=== PATIENT | female | born 1965 | race Caucasian/White ===

== ENCOUNTER 2017-12-31 12:09 | Emergency (ER) | payer OTHER, SELFPAY ==
[2017-12-31] VITALS (7 sets, daily range): BP systolic 130–185; BP diastolic 84–103; PULSE 90–104; RESP 12–24; TEMP 36.3; O2SAT 95–100; BMI 30.9
--- NOTE | 2017-12-31 12:53 | ED.ABDPAIN ---
HPI - Abdominal Pain <RACHNA Paiz - Last Filed: 12/31/17 22:52> General Chief Complaint: Abdominal Pain Stated Complaint: VOMITING BILE,THROAT PAIN,DIZZY,WEAK Time Seen by Provider: 12/31/17 12:24 History of Present Illness HPI narrative: 52-year-old female with history of type 2 diabetes and sarcoidosis of the lung here for complaint of weakness over the past day to 2 days. She has had positive nausea. She states that she has not been able to ambulate for the past day without help from her caregiver which is new for her. She was recently admitted to [facility] for treatment of her sarcoidosis and recently released. She states that she does have some pain into her upper abdominal area and when she vomits pain radiates up into her chest area. She denies any fevers or chills. She denies any stressors or relievers of her discomfort. Last bowel movement was yesterday and was unremarkable. She denies any urinary symptoms. Decreased p.o. intake over the past day states her last p.o. intake was yesterday. Related Data Home Medications Medication Instructions Recorded Confirmed acetaminophen-codeine 0.5 tab PO Q12H PRN 12/31/17 12/31/17 amlodipine 5 mg PO DAILY 12/31/17 12/31/17 aspirin 81 mg PO DAILY 12/31/17 12/31/17 dextran 70-hypromellose 1 drp OPHTHALMIC (EYE) DIRECTED 12/31/17 12/31/17 [Artificial Tears (PF)] duloxetine 60 mg PO DAILY 12/31/17 12/31/17 hydroxyzine HCl 25 mg PO Q6H PRN 12/31/17 12/31/17 insulin lispro [Humalog KwikPen 1 dose SUB-Q DIRECTED 12/31/17 12/31/17 Insulin] omeprazole 40 mg PO DAILY 12/31/17 12/31/17 prednisone 1 dose PO DIRECTED 12/31/17 12/31/17 rosuvastatin 10 mg PO DAILY 12/31/17 12/31/17 sennosides [senna] 8.6 mg PO DIRECTED PRN 12/31/17 12/31/17 Allergies Allergy/AdvReac Type Severity Reaction Status Date / Time gabapentin Allergy Verified 12/31/17 12:18 hydrochlorothiazide Allergy Verified 12/31/17 12:18 Review of Systems <RACHNA Paiz - Last Filed: 12/31/17 22:52> Constitutional Reports weakness Eyes Denies change in vision, Denies eye discharge, Denies irritation and Denies loss of vision ENT Ears, Nose, Mouth, and Throat: Denies change in voice, Denies neck pain and Denies sore throat Cardiovascular Denies chest pain, Denies irregular heart rhythm, Denies lightheadedness, Denies palpitations, Denies dyspnea, Denies dyspnea on exertion and Denies orthopnea Respiratory Denies cough, Denies dyspnea, Denies dyspnea on exertion and Denies wheezing Gastrointestinal Gastrointestinal: Reports abdominal pain and Reports vomiting Genitourinary Denies hematuria, Denies flank pain, Denies urinary incontinence and Denies urinary urgency Musculoskeletal Denies neck pain Integumentary/Breasts Denies pruritus, Denies erythema, Denies rash and Denies wounds Neurologic Denies confusion, Denies loss of vision and Reports weakness Psychiatric Denies anxiety, Denies confusion, Denies depression, Denies homicidal ideation and Denies suicidal ideation Endocrine Denies palpitations Allergic/Immunologic Denies wheezing Exam <RACHNA Paiz - Last Filed: 12/31/17 22:52> Initial Vital Signs Initial Vital Signs: Vital Signs Temperature 97.4 F L 12/31/17 12:18 Pulse Rate 91 H 12/31/17 12:18 Respiratory Rate 18 12/31/17 12:18 Blood Pressure 130/90 H 12/31/17 12:18 Pulse Oximetry 95 12/31/17 12:18 Const General: cooperative and well developed Nutritional Appearance: well nourished Orientation: alert, awake, oriented x3 and not confused [facility] Mouth: oral mucosae normal, oropharynx normal and moist mucous membranes Eyes Conjunctivae: conjunctivae normal Sclera: sclerae normal Pupils: PERRL EOM: EOM intact bilaterally Resp Effort & Inspection: normal respiratory effort, able to speak in complete sentences, no respiratory distress and no use of accessory muscles Auscultation: clear to auscultation bilaterally, no rales, no rhonchi and no wheezes Cardio Rate: regular rate Rhythm: regular rhythm Heart Sounds: no click, no gallops, no murmurs and no rubs Pulses: normal peripheral pulses GI Inspection: non-distended Palpation: soft, no hepatosplenomegaly, No guarding, No pulsatile mass and tender (Tenderness to upper abdomen from epigastric to right upper quadrant on palpation) Auscultation: normal bowel sounds General: No CVA tenderness Skin General: no rashes or lesions noted, No jaundice and No petechiae Neuro Cognition: normal cognition Speech: speech normal Motor: muscle tone normal throughout <Escobar De Leon DO - Last Filed: 01/01/18 07:03> Initial Vital Signs Initial Vital Signs: Vital Signs Temperature 97.4 F L 12/31/17 12:18 Pulse Rate 91 H 12/31/17 12:18 Respiratory Rate 18 12/31/17 12:18 Blood Pressure 130/90 H 12/31/17 12:18 Pulse Oximetry 95 12/31/17 12:18 Course <RACHNA Paiz - Last Filed: 12/31/17 22:52> Orders Ordered: Discontinued Medications Diphenhydramine HCl (Benadryl) 25 mg IV NOW ONE Stop: 12/31/17 12:54 Last Admin: 12/31/17 13:12 Dose: 25 mg Hydromorphone HCl (Dilaudid) 0.5 mg IV NOW ONE Stop: 12/31/17 12:54 Last Admin: 12/31/17 13:12 Dose: 0.5 mg Sodium Chloride (Normal Saline 0.9%) 1,000 mls @ 1,000 mls/hr IV BOLUS ONE Stop: 12/31/17 13:52 Last Infusion: 12/31/17 14:30 Dose: 0 mls/hr Admin: 12/31/17 13:12 Dose: 1,000 mls/hr Sodium Chloride (Normal Saline 0.9%) 1,000 mls @ 1,000 mls/hr IV BOLUS ONE Stop: 12/31/17 15:33 Last Infusion: 12/31/17 16:39 Dose: 0 mls/hr Admin: 12/31/17 14:38 Dose: 1,000 mls/hr Sodium Chloride (Normal Saline 0.9%) 1,000 mls @ 150 mls/hr IV CONT ROX Last Infusion: 12/31/17 17:36 Dose: 150 mls/hr Admin: 12/31/17 16:41 Dose: 150 mls/hr Metoclopramide HCl (Reglan) 10 mg IV NOW ONE Stop: 12/31/17 12:54 Last Admin: 12/31/17 13:12 Dose: 10 mg Prednisone (Deltasone) 40 mg PO NOW ONE Stop: 12/31/17 14:14 Last Admin: 12/31/17 14:23 Dose: 40 mg Vital Signs - 8 hr 12/31/17 15:41 12/31/17 16:27 12/31/17 16:50 Pulse Rate 92 H 94 H 93 H Respiratory Rate 12 16 13 Blood Pressure [Left Arm] 148/84 H 161/91 H 177/94 H Pulse Oximetry 100 96 97 <Escobar De Leon DO - Last Filed: 01/01/18 07:03> Orders Ordered: Discontinued Medications Diphenhydramine HCl (Benadryl) 25 mg IV NOW ONE Stop: 12/31/17 12:54 Last Admin: 12/31/17 13:12 Dose: 25 mg Hydromorphone HCl (Dilaudid) 0.5 mg IV NOW ONE Stop: 12/31/17 12:54 Last Admin: 12/31/17 13:12 Dose: 0.5 mg Sodium Chloride (Normal Saline 0.9%) 1,000 mls @ 1,000 mls/hr IV BOLUS ONE Stop: 12/31/17 13:52 Last Infusion: 12/31/17 14:30 Dose: 0 mls/hr Admin: 12/31/17 13:12 Dose: 1,000 mls/hr Sodium Chloride (Normal Saline 0.9%) 1,000 mls @ 1,000 mls/hr IV BOLUS ONE Stop: 12/31/17 15:33 Last Infusion: 12/31/17 16:39 Dose: 0 mls/hr Admin: 12/31/17 14:38 Dose: 1,000 mls/hr Sodium Chloride (Normal Saline 0.9%) 1,000 mls @ 150 mls/hr IV CONT ROX Last Infusion: 12/31/17 17:36 Dose: 150 mls/hr Admin: 12/31/17 16:41 Dose: 150 mls/hr Metoclopramide HCl (Reglan) 10 mg IV NOW ONE Stop: 12/31/17 12:54 Last Admin: 12/31/17 13:12 Dose: 10 mg Prednisone (Deltasone) 40 mg PO NOW ONE Stop: 12/31/17 14:14 Last Admin: 12/31/17 14:23 Dose: 40 mg Vital Signs - 8 hr 12/31/17 15:41 12/31/17 16:27 12/31/17 16:50 Pulse Rate 92 H 94 H 93 H Respiratory Rate 12 16 13 Blood Pressure [Left Arm] 148/84 H 161/91 H 177/94 H Pulse Oximetry 100 96 97 MDM - Abdominal Pain <RACHNA Paiz - Last Filed: 12/31/17 22:52> Lab Data Result diagrams: 12/31/17 12:35 12/31/17 12:35 Lab Results 12/31/17 12/31/17 Range/Units 12:35 12:35 WBC 9.1 (4.5-11.0) X10^3/uL RBC 4.63 (4.0-5.2) X10^6/uL Hgb 12.4 (12.0-16.0) g/dL Hct 36.7 (36-46) % MCV 79.4 L (80-100) fL MCH 26.8 (26-34) PG MCHC 33.8 (30-36) % RDW 14.2 (11.6-14.8) % Plt Count 306 (150-400) X10^3/uL Neut % (Auto) 69.8 (50-75) % Lymph % (Auto) 15.1 L (25-40) % [place] % (Auto) 9.4 (3-14) % Eos % (Auto) 5.2 H (2-4) % Baso % (Auto) 0.5 (0-2) % Neut # (Auto) 6300 H (5117-4005) /uL Sodium 140 (137-145) mmol/L Potassium 4.3 (3.4-5.1) mmol/L Chloride 90 L (98-107) mmol/L Carbon Dioxide 40 H* (22-32) mmol/L BUN 30 H (7-17) mg/dL Creatinine 2.00 H (0.52-1.04) mg/dL Estimated GFR 26.2 L (>60) mL/min BUN/Creatinine Ratio 15.0 (6-22) Glucose 220 H (70-100) mg/dL Calcium 17.4 H* (8.4-10.2) mg/dL Total Bilirubin 0.7 (0.2-1.3) mg/dL AST 48 H (14-36) IU/L ALT 35 (9-52) IU/L Alkaline Phosphatase 164 H (38-126) U/L Total Creatine Kinase 25 L (30-135) U/L Troponin I < 0.012 (0.01-0.034) ng/mL Total Protein 9.0 H (6.3-8.2) g/dL Albumin 4.2 (3.5-5.0) g/dL Globulin 4.8 H (1.7-4.1) g/dL Albumin/Globulin Ratio 0.9 L (1.0-2.8) Lipase 25 (23-300) U/L Imaging Data CT scan - abdomen: Radiologist's impression: Patient: Sumaya Ram MR#: [id number] : 1965 Acct:[id number] Age/Sex: 52 / F Date of Service: 12/31/17 Loc: ED Accession Number: [id number] Procedure: CT kidney ureter bladder (KUB) Ordering Provider: Luís Romero PROCEDURE: CT KIDNEY URETER BLADDER (KUB) INDICATIONS: Nausea vomiting abdominal pain TECHNIQUE: Noncontrast 5 mm thick sections acquired from the diaphragms to the symphysis. 5 mm thick coronal and sagittal reformats were then performed. For radiation dose reduction, the following was used: automated exposure control, adjustment of mA and/or kV according to patient size. COMPARISON: [facility], , ABDOMEN COMPLETE, 09/24/2007, 9:21. FINDINGS: Image quality: Excellent. Lung bases: Lung bases are clear. Heart size is normal. Urinary system: Both kidneys are normal in size. No kidney stones. No hydronephrosis or perinephric fat stranding. Both ureters appear non-dilated throughout their expected courses. Bladder wall thickness is normal; no calcified bladder stones. Other solid organs: Liver is enlarged with steatosis. Gallbladder demonstrates layering hyperdensity. No wall thickening. Pancreas is normal in contours. Spleen is normal in size. No adrenal nodules. Peritoneum and bowel: Unenhanced bowel loops demonstrate normal wall thickness and caliber. No free fluid or air. Colonic diveritcula are present without inflammatory change. Nodes and vessels: No retroperitoneal or mesenteric adenopathy by size criteria. Aorta and inferior vena cava are normal in caliber. Abdominal wall: No ventral hernias. Pelvis: No free pelvic fluid. Fat containing bilateral inguinal hernias. No adenopathy. Bones: No suspicious bony lesions. No vertebral body compression fractures. IMPRESSION: 1. No acute intra-abdominal or pelvic process. 2. Layering appearance of faint hyperdensity in the gallbladder without wall thickening. This could represent sludge. Ultrasound may be obtained if clinically indicated. Dictated by: Susie Ospina M.D. on 12/31/2017 at 14:29 Approved by: Susie Ospina M.D. on 12/31/2017 at 14:49 ECG Data Interpretation: EKG shows normal sinus rhythm with no ST elevation or depression. No ectopy. Ventricular rate of 97. W[place] interval of 165. QRS duration of 89. QT of 327. MDM Narrative Medical decision making narrative: CBC was obtained was unremarkable. Chem panel shows elevated calcium of 17, elevated CO2 of 40, creatinine of 2 and GFR of 26. Chest x-ray was obtained and was unremarkable. Discussed case with [facility] hospitalist Dr. Walter and also nephrology Dr. Morgan who has good knowledge in history of patient. Who recommend transferring patient down to [facility] for admission and further care and treatment down there. She has a history of having hypercalcemia secondary to the sarcoidosis and subsequent renal insufficiency. They recommended I give patient 40 mg of prednisone. Patient is supposed to be taking methotrexate and also prednisone taper does however patient states she has not started taking this as of yet. She is given 40 mg of prednisone in the emergency room. 2 L of normal saline was ordered and then placed on 150 mL of normal saline per hour. Patient was given Reglan and Benadryl for nausea which has helped her symptoms and a small dose of Dilaudid which also helped her discomfort. CT of abdomen was obtained and was negative for any acute findings. Patient is transported via ALS to [facility] <Escobar De Leon, - Last Filed: 01/01/18 07:03> Lab Data Lab Results 12/31/17 12/31/17 Range/Units 12:35 12:35 WBC 9.1 (4.5-11.0) X10^3/uL RBC 4.63 (4.0-5.2) X10^6/uL Hgb 12.4 (12.0-16.0) g/dL Hct 36.7 (36-46) % MCV 79.4 L (80-100) fL MCH 26.8 (26-34) PG MCHC 33.8 (30-36) % RDW 14.2 (11.6-14.8) % Plt Count 306 (150-400) X10^3/uL Neut % (Auto) 69.8 (50-75) % Lymph % (Auto) 15.1 L (25-40) % [place] % (Auto) 9.4 (3-14) % Eos % (Auto) 5.2 H (2-4) % Baso % (Auto) 0.5 (0-2) % Neut # (Auto) 6300 H (8595-5930) /uL Sodium 140 (137-145) mmol/L Potassium 4.3 (3.4-5.1) mmol/L Chloride 90 L (98-107) mmol/L Carbon Dioxide 40 H* (22-32) mmol/L BUN 30 H (7-17) mg/dL Creatinine 2.00 H (0.52-1.04) mg/dL Estimated GFR 26.2 L (>60) mL/min BUN/Creatinine Ratio 15.0 (6-22) Glucose 220 H (70-100) mg/dL Calcium 17.4 H* (8.4-10.2) mg/dL Total Bilirubin 0.7 (0.2-1.3) mg/dL AST 48 H (14-36) IU/L ALT 35 (9-52) IU/L Alkaline Phosphatase 164 H (38-126) U/L Total Creatine Kinase 25 L (30-135) U/L Troponin I < 0.012 (0.01-0.034) ng/mL Total Protein 9.0 H (6.3-8.2) g/dL Albumin 4.2 (3.5-5.0) g/dL Globulin 4.8 H (1.7-4.1) g/dL Albumin/Globulin Ratio 0.9 L (1.0-2.8) Lipase 25 (23-300) U/L Discharge Plan Departure Patient Disposition: [facility] Clinical Impression: Hypercalcemia due to sarcoidosis, Acute renal insufficiency, Weakness Discharge Date/Time: 12/31/17 17:15 Interventions: ED Discharge Assessment Last Done: 12/31/17 17:49 Prescriptions: No Action sennosides [senna] 8.6 mg Tablet 8.6 mg PO DIRECTED PRN (Reason: Constipation) RF: 0 prednisone 20 mg Tablet 1 dose PO DIRECTED RF: 0 acetaminophen-codeine 300-30 mg Tablet 0.5 tab PO Q12H PRN (Reason: Pain, Moderate) RF: 0 amlodipine 5 mg Tablet 5 mg PO DAILY RF: 0 omeprazole 40 mg Capsule,Delayed Release(Dr/Ec) 40 mg PO DAILY RF: 0 aspirin 81 mg Tablet,Chewable 81 mg PO DAILY RF: 0 hydroxyzine HCl 25 mg Tablet 25 mg PO Q6H PRN (Reason: Itching) RF: 0 insulin lispro [Humalog KwikPen Insulin] 100 unit/mL Insulin Pen 1 dose Sub-Q DIRECTED RF: 0 dextran 70-hypromellose [Artificial Tears (PF)] Dropperette 1 drp ophthalmic (eye) DIRECTED RF: 0 rosuvastatin 10 mg Tablet 10 mg PO DAILY RF: 0 duloxetine 60 mg Capsule,Delayed Release(Dr/Ec) 60 mg PO DAILY RF: 0 <Escobar De Leon DO - Last Filed: 01/01/18 07:03> Cosign ED Attending Maddyature Attestation: I was available for consultation during this patient's emergency department encounter
--- NOTE | 2017-12-31 12:55 | DI.RAD.S_ITS ---
PROCEDURE: XR CHEST 1V INDICATIONS: Weakness TECHNIQUE: One view of the chest was acquired. COMPARISON: [facility], , CHEST 1VW (PORTABLE), 10/12/2007, 1:19. FINDINGS: Surgical changes and devices: None. Lungs and pleura: No pleural effusions or pneumothorax. Lungs are clear. Mediastinum: Mediastinal contours appear normal. Heart size is normal. Bones and chest wall: No suspicious bony lesions. Overlying soft tissues appear unremarkable. IMPRESSION: Negative chest. No acute cardiopulmonary process is evident. Dictated by: Trell Del Castillo M.D. on 12/31/2017 at 12:34 Approved by: Trell Del Castillo M.D. on 12/31/2017 at 12:34
[2017-12-31 13:02] LABS: Add Manual Diff / Slide Review NO; Basophils Percent Auto 0.5 % (0-2); Eosinophils Percent Auto 5.2 % (2-4); Hematocrit 36.7 % (36-46); Hemoglobin 12.4 g/dL (12.0-16.0); Lymphocytes Percent Auto 15.1 % (25-40); Mean Corpuscular HGB Conc 33.8 % (30-36); Mean Corpuscular Hemoglobin 26.8 PG (26-34); Mean Corpuscular Volume 79.4 fL (80-100); Monocytes Percent Auto 9.4 % (3-14); Neutrophils Absolute Auto 6300 /uL (3000-5900); Neutrophils Percent Auto 69.8 % (50-75); Platelet Count 306 X10^3/uL (150-400); Red Blood Cell Count 4.63 X10^6/uL (4.0-5.2); Red Cell Distribution Width 14.2 % (11.6-14.8); White Blood Cell Count 9.1 X10^3/uL (4.5-11.0)
[2017-12-31 13:09] LABS: Alanine Aminotransferase 35 IU/L (9-52); Albumin 4.2 g/dL (3.5-5.0); Albumin Globulin Ratio 0.9 (1.0-2.8); Alkaline Phosphatase 164 U/L (38-126); Aspartate Aminotransferase 48 IU/L (14-36); Bilirubin Total 0.7 mg/dL (0.2-1.3); Blood Urea Nitrogen 30 mg/dL (7-17); Chloride 90 mmol/L (98-107); Creatine Kinase 25 U/L (30-135); Estimated Glomerular Filt Rate 26.2 mL/min (>60); Globulin 4.8 g/dL (1.7-4.1); Glucose 220 mg/dL (70-100); HEMOLYSIS < 15 (0-50); Lipase 25 U/L (23-300); Potassium 4.3 mmol/L (3.4-5.1); Sodium 140 mmol/L (137-145)
[2017-12-31] MEDS: METOCLOPRAMIDE 10 MG/2 ML INJ IV (13:12)
[2017-12-31] MEDS: HYDROMORPHONE 1 MG INJ 0.5 MG IV (13:12)
[2017-12-31] MEDS: SODIUM CHLORIDE 0.9% 1,000 ML 1000 ML IV ×2 (13:12→14:38)
[2017-12-31] MEDS: diphenhydrAMINE 50 MG/ML VIAL 25 MG IV (13:12)
[2017-12-31 13:24] LABS: Troponin I < 0.012 ng/mL (0.01-0.034)
[2017-12-31 13:25] LABS: Calcium 17.4 mg/dL (8.4-10.2); Carbon Dioxide 40 mmol/L (22-32)
--- NOTE | 2017-12-31 14:09 | DI.CT.S_ITS ---
PROCEDURE: CT KIDNEY URETER BLADDER (KUB) INDICATIONS: Nausea vomiting abdominal pain TECHNIQUE: Noncontrast 5 mm thick sections acquired from the diaphragms to the symphysis. 5 mm thick coronal and sagittal reformats were then performed. For radiation dose reduction, the following was used: automated exposure control, adjustment of mA and/or kV according to patient size. COMPARISON: [facility], [place], ABDOMEN COMPLETE, 09/24/2007, 9:21. FINDINGS: Image quality: Excellent. Lung bases: Lung bases are clear. Heart size is normal. Urinary system: Both kidneys are normal in size. No kidney stones. No hydronephrosis or perinephric fat stranding. Both ureters appear non-dilated throughout their expected courses. Bladder wall thickness is normal; no calcified bladder stones. Other solid organs: Liver is enlarged with steatosis. Gallbladder demonstrates layering hyperdensity. No wall thickening. Pancreas is normal in contours. Spleen is normal in size. No adrenal nodules. Peritoneum and bowel: Unenhanced bowel loops demonstrate normal wall thickness and caliber. No free fluid or air. Colonic diveritcula are present without inflammatory change. Nodes and vessels: No retroperitoneal or mesenteric adenopathy by size criteria. Aorta and inferior vena cava are normal in caliber. Abdominal wall: No ventral hernias. Pelvis: No free pelvic fluid. Fat containing bilateral inguinal hernias. No adenopathy. Bones: No suspicious bony lesions. No vertebral body compression fractures. IMPRESSION: 1. No acute intra-abdominal or pelvic process. 2. Layering appearance of faint hyperdensity in the gallbladder without wall thickening. This could represent sludge. Ultrasound may be obtained if clinically indicated. Dictated by: Susie Ospina M.D. on 12/31/2017 at 14:29 Approved by: Susie Ospina M.D. on 12/31/2017 at 14:49
[2017-12-31] MEDS: predniSONE 20 MG TABLET 40 MG PO (14:23)
--- NOTE | 2017-12-31 16:38 | PC.NURSE ---
Gave report to GAEL Jacobsen from [facility].
[2017-12-31] MEDS: SODIUM CHLORIDE 0.9% 1,000 ML 150 ML IV (16:41)
== END 2017-12-31 17:15 | disposition short-term general hospital (02) ==
PROVIDERS: Emergency Provider Nurse Practitioner Family
DX: E83.52 Hypercalcemia (principal); N18.9 Chronic kidney disease, unspecified; R53.81 Other malaise
CPT/HCPCS: 36591; 71045; 74176; 80053; 82550; 82553; 83690; 84484; 85025; 93005; 96361; 96374; 96375; 99284; 99285; J1170; J1200; J2765

== ENCOUNTER 2018-03-02 17:16 | Emergency (ER) | payer OTHER, SELFPAY ==
[2018-03-02 17:23] VITALS: BP 162/88; PULSE 102; RESP 22; O2SAT 97
--- NOTE | 2018-03-02 17:23 | DI.RAD.S_ITS ---
PROCEDURE: XR CHEST 1V INDICATIONS: dyspnea TECHNIQUE: One view of the chest was acquired. COMPARISON: None. FINDINGS: Surgical changes and devices: None. Lungs and pleura: No pleural effusions or pneumothorax. Lungs are clear. Mediastinum: Mediastinal contours appear normal. Heart size is normal. Bones and chest wall: No suspicious bony lesions. Overlying soft tissues appear unremarkable. IMPRESSION: No acute cardiopulmonary pathology. Dictated by: Truong Napoles M.D. on 03/02/2018 at 18:04 Approved by: Truong Napoles M.D. on 03/02/2018 at 18:04
[2018-03-02 17:41] VITALS: TEMP 36.8
--- NOTE | 2018-03-02 18:29 | PC.NURSE ---
pt denies any pain at this time. all of my symptoms besides my feet swelling have went away.
[2018-03-02] MEDS: SODIUM CHLORIDE 0.9% 1,000 ML 1000 ML IV (18:31)
--- NOTE | 2018-03-02 18:32 | PC.NURSE ---
NS RUNNING AT 150ML/HR.
[2018-03-02 18:38] VITALS: BP 154/82; PULSE 92; RESP 18; O2SAT 99
--- NOTE | 2018-03-02 18:41 | ED.GENADULT ---
HPI - General Adult General Chief complaint: Diabetic Problem Stated complaint: SWELLING ALL OVER,SOB Time Seen by Provider: 03/02/18 17:27 Source: patient and family Mode of arrival: ambulatory Limitations: no limitations History of Present Illness HPI narrative: 52-year-old female with history of complex type 2 diabetes and sarcoidosis with pulmonary and renal involvement presents to the emergency department with a chief complaint of a few days of increasing fatigue and malaise along with slowly elevating blood sugars and widespread swelling. The patient denies any chest pain or shortness of breath and has had no recent illness with fever, chills, chest pain or abdominal pain. Patient has a complex medical history and was diagnosed with sarcoidosis in August and has had frequent hospitalizations and difficult to manage symptoms ever since. She was most recently seen here about a month ago and transferred to [facility] for acute renal failure and hypercalcemia. She denies noncompliance with her insulin 9 and states that she has had some recent medication changes including the addition of Remicade, the reduction of her daily prednisone from 40-30 mg and an increase in her nightly Lantus to 50 units Onset (ago): day(s) Relieving factors: none Exacerbating factors: none Related Data Home Medications Medication Instructions Recorded Confirmed acetaminophen-codeine 0.5 tab PO Q12H PRN 12/31/17 12/31/17 amlodipine 5 mg PO DAILY 12/31/17 12/31/17 aspirin 81 mg PO DAILY 12/31/17 12/31/17 dextran 70-hypromellose 1 drp OPHTHALMIC (EYE) DIRECTED 12/31/17 12/31/17 [Artificial Tears (PF)] duloxetine 20 mg PO DAILY 12/31/17 12/31/17 hydroxyzine HCl 25 mg PO Q6H PRN 12/31/17 12/31/17 insulin lispro [Humalog KwikPen 1 dose SUB-Q DIRECTED 12/31/17 12/31/17 Insulin] omeprazole 40 mg PO DAILY 12/31/17 12/31/17 prednisone 30 mg PO DAILY 12/31/17 12/31/17 rosuvastatin 10 mg PO DAILY 12/31/17 12/31/17 sennosides [senna] 8.6 mg PO DIRECTED PRN 12/31/17 12/31/17 carvedilol 6.25 mg PO BID 03/02/18 03/02/18 furosemide 20 mg PO BID 03/02/18 03/02/18 infliximab [Remicade] 1 dose IV Q8W 03/02/18 03/02/18 insulin glargine [Lantus Solostar 50 unit SUB-Q DAILY 03/02/18 03/02/18 U-100 Insulin] triamterene [Dyrenium] 100 mg PO DAILY 03/02/18 03/02/18 Allergies Allergy/AdvReac Type Severity Reaction Status Date / Time gabapentin Allergy Verified 12/31/17 12:18 hydrochlorothiazide Allergy Verified 12/31/17 12:18 Review of Systems Review of Systems All systems reviewed & are unremarkable except as noted in HPI and below Constitutional Denies chills, Reports fatigue, Denies fever(s), Reports lethargy and Reports weakness Eyes Denies change in vision, Denies eye discharge, Denies irritation and Denies loss of vision ENT Ears, Nose, Mouth, and Throat: Denies change in voice, Denies neck pain and Denies sore throat Cardiovascular Denies chest pain, Denies irregular heart rhythm, Denies lightheadedness, Denies palpitations, Denies dyspnea, Denies dyspnea on exertion and Denies orthopnea Respiratory Denies cough, Denies dyspnea, Denies dyspnea on exertion and Denies wheezing Gastrointestinal Gastrointestinal: Denies abdominal pain, Denies change in bowel habits, Denies diarrhea, Denies nausea and Denies vomiting Genitourinary Denies hematuria, Denies flank pain, Denies urinary incontinence and Denies urinary urgency Musculoskeletal Denies neck pain Comments: Patient admits to widespread swelling which is most notable in her feet and ankles Integumentary/Breasts Denies pruritus, Denies erythema, Denies rash and Denies wounds Neurologic Denies confusion, Denies loss of vision and Reports weakness Psychiatric Denies anxiety, Denies confusion, Denies depression, Denies homicidal ideation and Denies suicidal ideation Endocrine Reports fatigue and Denies palpitations Hematologic/Lymphatic Denies easy bruising Allergic/Immunologic Denies wheezing PFSH Medical History GERD (gastroesophageal reflux disease) (Chronic) HTN (hypertension) (Chronic) Hyperlipidemia (Chronic) Sarcoidosis (Chronic) Type 2 diabetes mellitus (Chronic) Exam Initial Vital Signs Initial Vital Signs: Vital Signs Pulse Rate 102 H 03/02/18 17:23 Respiratory Rate 22 03/02/18 17:23 Blood Pressure 162/88 H 03/02/18 17:23 Pulse Oximetry 97 03/02/18 17:23 Const General: cooperative and well developed Nutritional Appearance: obese Orientation: alert, awake, oriented x3 and not confused [facility] Head: normocephalic and atraumatic Ears: external ears normal and TM's normal bilaterally Nose: external nose normal and No nasal discharge Face and sinus: sinuses nontender, face symmetric, no sinus tenderness and No dry mucous membranes Mouth: oral mucosae normal and moist mucous membranes Teeth and gingiva: dentition normal Throat: tonsils normal and uvula midline Eyes General: appearance normal, both eyes and all related structures Eyelids: eyelids normal Conjunctivae: conjunctivae normal Sclera: sclerae normal Pupils: PERRL EOM: EOM intact bilaterally Neck Neck: normal visual inspection, trachea midline, No lymphadenopathy, No midline deformity and No JVD Lymphatic: No lymphedema Chest Chest: normal inspection of the chest Resp Effort & Inspection: normal respiratory effort, able to speak in complete sentences, no respiratory distress and no use of accessory muscles Auscultation: clear to auscultation bilaterally, no rales, no rhonchi and no wheezes Cardio Rate: regular rate Rhythm: regular rhythm Heart Sounds: no click, no gallops, no murmurs and no rubs Pulses: normal peripheral pulses GI Inspection: non-distended Palpation: soft, no hepatosplenomegaly, No guarding, No pulsatile mass and No tender Auscultation: normal bowel sounds Back/Spine/Pelvis Back: No CVA tenderness Cervical Spine: cervical ROM normal and No pain with cervical ROM Thoracic/Lumbar Spine: thoracic and lumbar spine normal to inspection Skin General: no rashes or lesions noted, No jaundice and No petechiae Neuro General: alert, oriented x3, gait normal and no focal motor deficits Speech: speech normal Extrem General: full ROM and no calf tenderness Right lower extremity: edema Left lower extremity: edema Psych Appearance: well kempt Mental Status: mental status grossly normal Attitude: cooperative Thought Content: normal and suicidality Judgment: judgment good Course Orders Ordered: ED Orders 03/02/18 17:23 XR chest 1V Stat 03/02/18 17:29 EKG-12 Lead Stat 03/02/18 19:10 B Type Natriuretic Peptide Stat Complete Blood Count AUTO DIFF Stat Comprehensive Metabolic Panel Stat Ketones (Beta-Hydroxybutyrate) Stat Lipase Stat Magnesium Stat Phosphorous Stat Troponin & CK Cardiac Panel Stat Venous Blood Gas Stat Discontinued Medications Sodium Chloride (Normal Saline 0.9%) 1,000 mls @ 150 mls/hr IV CONT ROX Last Admin: 03/02/18 18:32 Dose: Not Given Sodium Chloride (Normal Saline 0.9%) 1,000 mls @ 1,000 mls/hr IV BOLUS ONE Stop: 03/02/18 18:54 Last Infusion: 03/02/18 23:17 Dose: 0 mls/hr Admin: 03/02/18 18:31 Dose: 1,000 mls/hr Insulin Human Regular 100 unit (/ Sodium Chloride) 100 mls @ 6 mls/hr IV TITRATE ROX; Protocol Last Admin: 03/02/18 22:28 Dose: 6 mls/hr, 6 mls/hr Insulin Human Regular (Humulin R) 10 unit SUBCUT NOW ONE Stop: 03/02/18 19:50 Last Admin: 03/02/18 20:13 Dose: 10 unit Reevaluation(s) Reevaluation #1: patient given insulin 10U SQ and BG still reading over 500. Consultations Consultation #1: Dr. Sandoval (hospitalist) at [facility] does not feel comfortable keeping patient here given lack of resources and specialties that this patient historically needs. Call to for higher level of care and continuity Consultation #2: Dr. Mccann is happy to accept patient. states we can initiate transport prior to bed assignment. Ambulance dispatched (ALS given drips and cardiac monitoring) call back to Dr. Mccann to discuss lack of response to SQ insulin and we agree that insulin drip is appropriate, he recommends 0.1U/kg/hr and transfer center confirms they still have an available appropriate bed given this change in intensity of service Time: 21:59 Vital Signs - 8 hr 03/02/18 17:23 03/02/18 17:41 03/02/18 18:38 Temperature 98.2 F Pulse Rate 102 H 92 H Respiratory Rate 22 18 Blood Pressure 162/88 H Blood Pressure [Left Arm] 154/82 H Pulse Oximetry 97 99 03/02/18 19:12 03/02/18 21:19 03/02/18 22:52 Temperature 98.0 F Pulse Rate 89 87 81 Respiratory Rate 15 16 20 Blood Pressure Blood Pressure [Left Arm] 128/78 H 130/79 H 140/93 H Pulse Oximetry 96 98 98 Medical Decision Making Lab Data Result diagrams: 03/02/18 19:10 03/02/18 19:10 Lab Results 03/02/18 03/02/18 03/02/18 Range/Units 19:10 19:10 19:10 WBC 10.0 (4.5-11.0) X10^3/uL RBC 3.46 L (4.0-5.2) X10^6/uL Hgb 9.3 L (12.0-16.0) g/dL Hct 28.9 L (36-46) % MCV 83.6 (80-100) fL MCH 27.0 (26-34) PG MCHC 32.3 (30-36) % RDW 16.5 H (11.6-14.8) % Plt Count 229 (150-400) X10^3/uL Neut % (Auto) 83.4 H (50-75) % Lymph % (Auto) 10.6 L (25-40) % Ector % (Auto) 5.6 (3-14) % Eos % (Auto) 0.2 L (2-4) % Baso % (Auto) 0.2 (0-2) % Neut # (Auto) 8400 H (1010-4199) /uL VBG pH (7.31-7.41) VBG pCO2 (45-50) mmHg VBG pO2 (35-45) mmHg VBG HCO3 (24-28) mmol/L VBG Total CO2 (24-29) mmol/L VBG O2 Saturation (70-75) % VBG Base Excess (0-4) mmol/L Sodium 132 L (137-145) mmol/L Potassium 5.8 H (3.4-5.1) mmol/L Chloride 98 (98-107) mmol/L Carbon Dioxide 22 (22-32) mmol/L BUN 45 H (7-17) mg/dL Creatinine 1.40 H (0.52-1.04) mg/dL Estimated GFR 39.5 L (>60) mL/min BUN/Creatinine Ratio 32.1 H (6-22) Glucose 689 H* (70-100) mg/dL Calcium 8.3 L (8.4-10.2) mg/dL Phosphorus (2.5-4.5) mg/dL Magnesium (1.6-2.3) mg/dL Total Bilirubin 0.4 (0.2-1.3) mg/dL AST 48 H (14-36) IU/L ALT 66 H (9-52) IU/L Alkaline Phosphatase 120 (38-126) U/L Total Creatine Kinase 61 (30-135) U/L Troponin I < 0.012 (0.01-0.034) ng/mL B-Natriuretic Peptide < 100.0 (<100) Total Protein 6.2 L (6.3-8.2) g/dL Albumin 3.4 L (3.5-5.0) g/dL Globulin 2.8 (1.7-4.1) g/dL Albumin/Globulin Ratio 1.2 (1.0-2.8) Lipase 133 (23-300) U/L Ketones (<0.27) mmol/L 03/02/18 03/02/18 03/02/18 Range/Units 19:10 19:10 19:10 WBC (4.5-11.0) X10^3/uL RBC (4.0-5.2) X10^6/uL Hgb (12.0-16.0) g/dL Hct (36-46) % MCV (80-100) fL MCH (26-34) PG MCHC (30-36) % RDW (11.6-14.8) % Plt Count (150-400) X10^3/uL Neut % (Auto) (50-75) % Lymph % (Auto) (25-40) % Ector % (Auto) (3-14) % Eos % (Auto) (2-4) % Baso % (Auto) (0-2) % Neut # (Auto) (7143-1049) /uL VBG pH 7.33 (7.31-7.41) VBG pCO2 40.2 L (45-50) mmHg VBG pO2 36 (35-45) mmHg VBG HCO3 21 L (24-28) mmol/L VBG Total CO2 22 L (24-29) mmol/L VBG O2 Saturation 65 L (70-75) % VBG Base Excess -5.0 L (0-4) mmol/L Sodium (137-145) mmol/L Potassium (3.4-5.1) mmol/L Chloride (98-107) mmol/L Carbon Dioxide (22-32) mmol/L BUN (7-17) mg/dL Creatinine (0.52-1.04) mg/dL Estimated GFR (>60) mL/min BUN/Creatinine Ratio (6-22) Glucose (70-100) mg/dL Calcium (8.4-10.2) mg/dL Phosphorus 3.5 (2.5-4.5) mg/dL Magnesium 1.8 (1.6-2.3) mg/dL Total Bilirubin (0.2-1.3) mg/dL AST (14-36) IU/L ALT (9-52) IU/L Alkaline Phosphatase (38-126) U/L Total Creatine Kinase (30-135) U/L Troponin I (0.01-0.034) ng/mL B-Natriuretic Peptide (<100) Total Protein (6.3-8.2) g/dL Albumin (3.5-5.0) g/dL Globulin (1.7-4.1) g/dL Albumin/Globulin Ratio (1.0-2.8) Lipase (23-300) U/L Ketones 0.20 (<0.27) mmol/L Discharge Plan Departure Patient Disposition: [facility] Clinical Impression: Acute hyperglycemia Discharge Date/Time: 03/02/18 23:16 Interventions: ED Discharge Assessment Last Done: 03/02/18 23:16 Prescriptions: No Action sennosides [senna] 8.6 mg Tablet 8.6 mg PO DIRECTED PRN (Reason: Constipation) RF: 0 prednisone 20 mg Tablet 30 mg PO DAILY RF: 0 acetaminophen-codeine 300-30 mg Tablet 0.5 tab PO Q12H PRN (Reason: Pain, Moderate) RF: 0 amlodipine 5 mg Tablet 5 mg PO DAILY RF: 0 omeprazole 40 mg Capsule,Delayed Release(Dr/Ec) 40 mg PO DAILY RF: 0 aspirin 81 mg Tablet,Chewable 81 mg PO DAILY RF: 0 hydroxyzine HCl 25 mg Tablet 25 mg PO Q6H PRN (Reason: Itching) RF: 0 insulin lispro [Humalog KwikPen Insulin] 100 unit/mL Insulin Pen 1 dose Sub-Q DIRECTED RF: 0 dextran 70-hypromellose [Artificial Tears (PF)] Dropperette 1 drp ophthalmic (eye) DIRECTED RF: 0 rosuvastatin 10 mg Tablet 10 mg PO DAILY RF: 0 duloxetine 60 mg Capsule,Delayed Release(Dr/Ec) 20 mg PO DAILY RF: 0 carvedilol 6.25 mg Tablet 6.25 mg PO BID RF: 0 infliximab [Remicade] 100 mg Recon Soln 1 dose IV Q8W RF: 0 triamterene [Dyrenium] 100 mg Capsule 100 mg PO DAILY RF: 0 furosemide 20 mg Tablet 20 mg PO BID RF: 0 insulin glargine [Lantus Solostar U-100 Insulin] 100 unit/mL (3 mL) Insulin Pen 50 unit SUB-Q DAILY RF: 0
[2018-03-02 19:12] VITALS: BP 128/78; PULSE 89; RESP 15; O2SAT 96
[2018-03-02 19:26] LABS: pH VBG 7.33 (7.31-7.41)
[2018-03-02 19:27] LABS: HCO3 VBG 21 mmol/L (24-28); Oxygen Saturation VBG 65 % (70-75); PCO2 VBG 40.2 mmHg (45-50); PO2 VBG 36 mmHg (35-45); Total CO2 VBG 22 mmol/L (24-29)
[2018-03-02 19:31] LABS: Add Manual Diff / Slide Review NO; Basophils Percent Auto 0.2 % (0-2); Eosinophils Percent Auto 0.2 % (2-4); Hematocrit 28.9 % (36-46); Hemoglobin 9.3 g/dL (12.0-16.0); Lymphocytes Percent Auto 10.6 % (25-40); Magnesium 1.8 mg/dL (1.6-2.3); Mean Corpuscular HGB Conc 32.3 % (30-36); Mean Corpuscular Volume 83.6 fL (80-100); Monocytes Percent Auto 5.6 % (3-14); Neutrophils Absolute Auto 8400 /uL (3000-5900); Neutrophils Percent Auto 83.4 % (50-75); Phosphorous 3.5 mg/dL (2.5-4.5); Platelet Count 229 X10^3/uL (150-400); Red Blood Cell Count 3.46 X10^6/uL (4.0-5.2); Red Cell Distribution Width 16.5 % (11.6-14.8)
[2018-03-02 19:32] LABS: Alanine Aminotransferase 66 IU/L (9-52); Albumin 3.4 g/dL (3.5-5.0); Albumin Globulin Ratio 1.2 (1.0-2.8); Alkaline Phosphatase 120 U/L (38-126); Aspartate Aminotransferase 48 IU/L (14-36); BUN Creatinine Ratio 32.1 (6-22); Bilirubin Total 0.4 mg/dL (0.2-1.3); Blood Urea Nitrogen 45 mg/dL (7-17); Calcium 8.3 mg/dL (8.4-10.2); Carbon Dioxide 22 mmol/L (22-32); Chloride 98 mmol/L (98-107); Creatine Kinase 61 U/L (30-135); Estimated Glomerular Filt Rate 39.5 mL/min (>60); Globulin 2.8 g/dL (1.7-4.1); HEMOLYSIS < 15 (0-50); Lipase 133 U/L (23-300); Sodium 132 mmol/L (137-145); Total Protein 6.2 g/dL (6.3-8.2)
[2018-03-02 19:33] LABS: Potassium 5.8 mmol/L (3.4-5.1)
[2018-03-02 19:48] LABS: Glucose 689 mg/dL (70-100); Troponin I < 0.012 ng/mL (0.01-0.034)
[2018-03-02 20:07] LABS: B Type Natriuretic Peptide < 100.0 (<100)
[2018-03-02] MEDS: INSULIN REGULAR 100 UNIT/ML 3 ML VIAL 10 UNIT SUBCUT (20:13)
[2018-03-02 21:19] VITALS: BP 130/79; PULSE 87; RESP 16; TEMP 36.7; O2SAT 98
[2018-03-02] MEDS: INSULIN REGULAR, HUMAN 100 UNIT in SODIUM CHLORIDE 0.9% 100 ML 6 ML IV (22:28)
[2018-03-02 22:52] VITALS: BP 140/93; PULSE 81; RESP 20; O2SAT 98
--- NOTE | 2018-03-02 23:18 | PC.NURSE ---
insulin drip continues at time of transfer
== END 2018-03-02 23:16 | disposition short-term general hospital (02) ==
PROVIDERS: Emergency Medicine; Internal Medicine; Emergency Provider Emergency Medicine
DX: E11.65 Type 2 diabetes mellitus with hyperglycemia (principal); R06.02 Shortness of breath; Z79.4 Long term (current) use of insulin
CPT/HCPCS: 36415; 36591; 71045; 80053; 81003; 82009; 82550; 82553; 82805; 82962; 83690; 83735; 83880; 84100; 84484; 85025; 93005; 93010; 96360; 96361; 96372; 99283; 99285

== ENCOUNTER 2018-04-12 05:21 | Emergency (ER) | payer OTHER, SELFPAY ==
--- NOTE | 2018-04-12 05:30 | ED.SKABFB ---
HPI - Skin/Abscess/Foreign Bdy General Chief complaint: Skin/Abscess/Foreign Body Stated complaint: PAINFUL RASH CHEST X3 DAYS Time Seen by Provider: 04/12/18 05:30 Source: patient Mode of arrival: ambulatory Limitations: no limitations History of Present Illness HPI narrative: Patient is a 52-year-old female with a history of sarcoidosis currently on 5 mg of prednisone on a daily basis also an insulin-dependent diabetic here for evaluation of 3 weeks of itching and a rash. She has talked with her process improvement consultant and also her concrete gun operator about this. They state that she is having a reaction to ?something? she has tried opening a bath at home. Has tried Zyrtec, Benadryl. She states she cannot get an appointment the comp[employer]ings until after the beginning of the year. Denies any fevers. Related Data Home Medications Medication Instructions Recorded Confirmed acetaminophen-codeine 0.5 tab PO Q12H PRN 12/31/17 12/31/17 amlodipine 5 mg PO DAILY 12/31/17 12/31/17 aspirin 81 mg PO DAILY 12/31/17 12/31/17 dextran 70-hypromellose 1 drp OPHTHALMIC (EYE) DIRECTED 12/31/17 12/31/17 [Artificial Tears (PF)] duloxetine 20 mg PO DAILY 12/31/17 12/31/17 hydroxyzine HCl 25 mg PO Q6H PRN 12/31/17 12/31/17 insulin lispro [Humalog KwikPen 1 dose SUB-Q DIRECTED 12/31/17 12/31/17 Insulin] omeprazole 40 mg PO DAILY 12/31/17 12/31/17 prednisone 30 mg PO DAILY 12/31/17 12/31/17 rosuvastatin 10 mg PO DAILY 12/31/17 12/31/17 sennosides [senna] 8.6 mg PO DIRECTED PRN 12/31/17 12/31/17 carvedilol 6.25 mg PO BID 03/02/18 03/02/18 furosemide 20 mg PO BID 03/02/18 03/02/18 infliximab [Remicade] 1 dose IV Q8W 03/02/18 03/02/18 insulin glargine [Lantus Solostar 50 unit SUB-Q DAILY 03/02/18 03/02/18 U-100 Insulin] triamterene [Dyrenium] 100 mg PO DAILY 03/02/18 03/02/18 Previous Rx's Medication Instructions Recorded fluconazole [Diflucan] 100 mg PO DAILY #2 tab 04/12/18 hydroxyzine HCl 25 mg PO TID-QID PRN #14 tab 04/12/18 Allergies Allergy/AdvReac Type Severity Reaction Status Date / Time gabapentin Allergy Verified 12/31/17 12:18 hydrochlorothiazide Allergy Verified 12/31/17 12:18 Review of Systems Constitutional Denies fever(s) Cardiovascular Denies chest pain and Denies dyspnea Respiratory Denies dyspnea Musculoskeletal Denies myalgias and Denies arthralgias Integumentary/Breasts Reports dry skin, Reports pruritus, Reports rash and Reports sores Hematologic/Lymphatic Denies easy bleeding and Denies easy bruising [facility] Medical History GERD (gastroesophageal reflux disease) (Chronic) HTN (hypertension) (Chronic) Hyperlipidemia (Chronic) Sarcoidosis (Chronic) Type 2 diabetes mellitus (Chronic) Exam Initial Vital Signs Initial Vital Signs: Vital Signs Temperature 97.2 F L 04/12/18 05:36 Pulse Rate 88 04/12/18 05:36 Respiratory Rate 18 04/12/18 05:36 Blood Pressure 190/99 H 04/12/18 05:36 Pulse Oximetry 98 04/12/18 05:36 Const General: cooperative, healthy appearing, comfortable, well developed, well groomed and No acute distress Orientation: alert, awake and oriented x3 HENMT Head: normal to inspection and normocephalic Resp Effort & Inspection: normal respiratory effort Skin Other: Patient with dry skin. Has multiple excoriation areas. Has also multiple areas of small ulcerations. No active bleeding. No surrounding erythema. Neuro General: alert, awake and oriented x3 Extrem General: normal to inspection and capillary refill normal Psych Appearance: grossly normal and well kempt Course Vital Signs - 8 hr 04/12/18 05:36 Temperature 97.2 F L Pulse Rate 88 Respiratory Rate 18 Blood Pressure 190/99 H Pulse Oximetry 98 MDM - Skin/Abscess/Foreign Bdy MDM Narrative Medical decision making narrative: Patient's physical exam today is not consistent with shingles. She was concerned about this. She does have dry skin and we did discuss the importance of keeping her skin moisturized. Unsure as the exact etiology of the cause of her rash. Does not look to be cellulitic. She thinks that she has tried hydroxyzine in the past but is unsure so I will send her home with a prescription for this. She also states she feels like she has a yeast infection so will send home with a prescription for Diflucan. We also discussed the possibility of going back up on her prednisone however we did discuss the the cautions of this to include elevations of her blood sugar. Patient expressed understanding and agreement with plan. Discharge Plan Departure Patient Disposition: Home Clinical Impression: Generalized pruritus, Rash Instructions: DI for Rash Activity Restrictions/Additional Instructions: Recommend that at baseline you start using a moisturizing cream. Take the other medications as directed and like we discussed. There is also a possibility of increasing your prednisone back to 20 mg on a daily basis. You do need to watch her blood sugars if you do this. Call your process improvement consultant on Saturday morning if you decide to do this. Would also discussed with your primary doctor about referral to see dermatology. Prescriptions: New fluconazole [Diflucan] 100 mg tablet 100 mg PO DAILY Qty: 2 RF: 0 hydroxyzine HCl 25 mg tablet 25 mg PO TID-QID PRN (Reason: itching) Qty: 14 RF: 0 No Action sennosides [senna] 8.6 mg Tablet 8.6 mg PO DIRECTED PRN (Reason: Constipation) RF: 0 prednisone 20 mg Tablet 30 mg PO DAILY RF: 0 acetaminophen-codeine 300-30 mg Tablet 0.5 tab PO Q12H PRN (Reason: Pain, Moderate) RF: 0 amlodipine 5 mg Tablet 5 mg PO DAILY RF: 0 omeprazole 40 mg Capsule,Delayed Release(Dr/Ec) 40 mg PO DAILY RF: 0 aspirin 81 mg Tablet,Chewable 81 mg PO DAILY RF: 0 hydroxyzine HCl 25 mg Tablet 25 mg PO Q6H PRN (Reason: Itching) RF: 0 insulin lispro [Humalog KwikPen Insulin] 100 unit/mL Insulin Pen 1 dose Sub-Q DIRECTED RF: 0 dextran 70-hypromellose [Artificial Tears (PF)] Dropperette 1 drp ophthalmic (eye) DIRECTED RF: 0 rosuvastatin 10 mg Tablet 10 mg PO DAILY RF: 0 duloxetine 60 mg Capsule,Delayed Release(Dr/Ec) 20 mg PO DAILY RF: 0 carvedilol 6.25 mg Tablet 6.25 mg PO BID RF: 0 infliximab [Remicade] 100 mg Recon Soln 1 dose IV Q8W RF: 0 triamterene [Dyrenium] 100 mg Capsule 100 mg PO DAILY RF: 0 furosemide 20 mg Tablet 20 mg PO BID RF: 0 insulin glargine [Lantus Solostar U-100 Insulin] 100 unit/mL (3 mL) Insulin Pen 50 unit SUB-Q DAILY RF: 0
[2018-04-12 05:36] VITALS: BP 190/99; PULSE 88; RESP 18; TEMP 36.2; O2SAT 98; BMI 37.0
[2018-04-12 06:13] VITALS: BP 172/80; PULSE 89; RESP 18; O2SAT 98
--- NOTE | 2018-04-17 15:52 | PC.NURSE ---
Attempted follow up call,no answer
== END 2018-04-12 06:14 | disposition home or self-care (01) ==
PROVIDERS: Emergency Provider Emergency Medicine
DX: L29.9 Pruritus, unspecified (principal)
CPT/HCPCS: 99282

== ENCOUNTER 2018-09-25 13:04 | Emergency (ER) | payer OTHER, SELFPAY ==
[2018-09-25 13:10] VITALS: BP 184/105; PULSE 106; RESP 14; TEMP 36.6; O2SAT 98; BMI 30.9
--- NOTE | 2018-09-25 13:33 | DI.RAD.S_ITS ---
PROCEDURE: XR CHEST 1V INDICATIONS: hx of sarcoid TECHNIQUE: One view of the chest was acquired. COMPARISON: [facility], CR, XR CHEST 1V, 03/02/2018, 17:52. [facility], CR, XR CHEST 1V, 12/31/2017, 12:59. FINDINGS: Surgical changes and devices: None. Lungs and pleura: Lungs are clear except for small linear scar left lung base. No pleural effusions or pneumothorax. Mediastinum: Mediastinal contours appear normal. Heart size is normal. Bones and chest wall: No suspicious bony lesions. Overlying soft tissues appear unremarkable. IMPRESSION: Mildly reduced inspiratory volume, linear scarring left lung base. No adenopathy seen, no pulmonary fibrosis suspected. Dictated by: Gianni Segura M.D. on 09/25/2018 at 13:26 Approved by: Gianni Segura M.D. on 09/25/2018 at 13:26
[2018-09-25] MEDS: SODIUM CHLORIDE 0.9% 1,000 ML 1000 ML IV (13:45)
[2018-09-25 13:48] VITALS: BP 168/86; PULSE 109; RESP 22; O2SAT 96
--- NOTE | 2018-09-25 13:50 | ED_ITS ---
HPI - General Adult General Chief complaint: Hypertension Stated complaint: Blood pressure is 248/143 Time Seen by Provider: 09/25/18 13:17 Source: patient Mode of arrival: ambulatory Limitations: no limitations History of Present Illness HPI narrative: Patient is a 53-year-old female presenting with elevated blood pressure. History of sarcoid this is and is currently being treated with Remicade every 2 weeks. Her calcium is being monitored it is noted to be elevated she says. She was that here by her manager mission after they noted her blood pressure was elevated. She has a muscle headache. The she was feeling nauseated but no vomiting she is no longer feeling nauseated she has no focal weakness. Id she had her eyes injected 3 days ago and has bilateral subconjunctival hemorrhages. Related Data Home Medications Medication Instructions Recorded Confirmed insulin lispro [Humalog KwikPen 1 dose SUB-Q DIRECTED 12/31/17 09/25/18 Insulin] rosuvastatin 10 mg PO DAILY 12/31/17 09/25/18 infliximab [Remicade] 1 dose IV Q2W 03/02/18 09/25/18 insulin glargine [Lantus Solostar 55 unit SUB-Q DAILY 03/02/18 09/25/18 U-100 Insulin] biotin 10,000 mcg PO DAILY 09/25/18 09/25/18 budesonide [Pulmicort Flexhaler] 2 puff INHALATION BID 09/25/18 09/25/18 cyanocobalamin (vitamin B-12) 1,000 mcg PO DAILY 09/25/18 09/25/18 [Vitamin B-12] duloxetine 60 mg PO DAILY 09/25/18 09/25/18 gabapentin 100 mg PO BEDTIME 09/25/18 09/25/18 omeprazole 20 mg PO DAILY 09/25/18 09/25/18 pyridoxine (vitamin B6) [Vitamin 100 mg PO DAILY 09/25/18 09/25/18 B-6] Allergies Allergy/AdvReac Type Severity Reaction Status Date / Time gabapentin Allergy Verified 09/25/18 13:15 hydrochlorothiazide Allergy Verified 09/25/18 13:15 Review of Systems Review of Systems ROS Unobtainable: All systems reviewed & are unremarkable except as noted in HPI and below Constitutional Denies chills, Denies fever(s), Denies lethargy and Denies weakness Cardiovascular Reports as per HPI, Denies chest pain, Denies edema, Denies irregular heart rhythm and Denies dyspnea Respiratory Denies dyspnea Gastrointestinal Gastrointestinal: Denies abdominal pain, Denies change in bowel habits, Denies diarrhea, Denies nausea and Denies vomiting Genitourinary Denies hematuria, Denies flank pain, Denies urinary incontinence and Denies urinary urgency Musculoskeletal Denies back pain, Denies muscle weakness, Denies numbness and Denies tingling Integumentary/Breasts Denies pruritus, Denies erythema, Denies rash and Denies wounds Neurologic Denies numbness, Denies tingling and Denies weakness [facility] Medical History GERD (gastroesophageal reflux disease) (Chronic) HTN (hypertension) (Chronic) Hyperlipidemia (Chronic) Sarcoidosis (Chronic) Type 2 diabetes mellitus (Chronic) Social History Smoking Status: Current every day smoker Social History Smoking Status: Current every day smoker Comment: All doctors are at [facility] Exam Initial Vital Signs Initial Vital Signs: Vital Signs Temperature 97.9 F 09/25/18 13:10 Pulse Rate 106 H 09/25/18 13:10 Respiratory Rate 14 09/25/18 13:10 Blood Pressure 184/105 H 09/25/18 13:10 Pulse Oximetry 98 09/25/18 13:10 GENERAL: Well-appearing, well-nourished and in no acute distress. HEENT: Head atraumatic,EOMI, pupils reactive, face symmetric, moist mucous membranes, bilateral subconjunctival hemorrhage CARDIOVASCULAR: Regular rate and rhythm without murmurs, rubs or gallops. RESPIRATORY: Breath sounds equal bilaterally, no wheezes rales or rhonchi. ABDOMEN: Soft, nontender. Normoactive bowel sounds all 4 quadrants. No guarding or rebound. EXTREMITIES: Normal range of motion, no clubbing or edema. Neurovascularly intact NEUROLOGICAL: Alert and oriented x4.Normal gait and speech. Cranial nerves II through XII grossly intact. Good [id number], good [id number], strength equal bilaterally, no dysarthria or aphasia, sensation in tact to soft touch bilaterally, no visual changes, no facial droop SKIN: Warm, dry, no laceration, no petechiae, no rashes or lesions. Course Orders Ordered: ED Orders 09/25/18 13:19 EKG-12 Lead Stat 09/25/18 13:33 XR chest 1V Stat EKG-12 Lead Stat 09/25/18 13:40 Complete Blood Count AUTO DIFF Stat Comprehensive Metabolic Panel Stat Lipase Stat Troponin & CK Cardiac Panel Stat Discontinued Medications Sodium Chloride (Normal Saline 0.9%) 1,000 mls @ 1,000 mls/hr IV CONT ROX Last Infusion: 09/25/18 14:40 Dose: 0 mls/hr Admin: 09/25/18 13:45 Dose: 1,000 mls/hr Vital Signs - 8 hr 09/25/18 13:10 09/25/18 13:48 09/25/18 15:07 Temperature 97.9 F Pulse Rate 106 H 109 H 98 H Respiratory Rate 14 22 15 Blood Pressure 184/105 H 141/80 H Blood Pressure [Right Arm] 168/86 H Pulse Oximetry 98 96 98 Medical Decision Making Lab Data Lab results reviewed: Yes I reviewed the patient's lab results. Result diagrams: 09/25/18 13:40 09/25/18 13:40 Lab Results 09/25/18 09/25/18 Range/Units 13:40 13:40 WBC 8.9 (4.5-11.0) X10^3/uL RBC 4.45 (4.0-5.2) X10^6/uL Hgb 11.8 L (12.0-16.0) g/dL Hct 35.9 L (36-46) % MCV 80.7 (80-100) fL MCH 26.4 (26-34) PG MCHC 32.8 (30-36) % RDW 14.5 (11.6-14.8) % Plt Count 229 (150-400) X10^3/uL Neut % (Auto) 59.7 (50-75) % Lymph % (Auto) 27.4 (25-40) % [place] % (Auto) 7.2 (3-14) % Eos % (Auto) 5.2 H (2-4) % Baso % (Auto) 0.5 (0-2) % Neut # (Auto) 5300 (2231-1080) /uL Lymph # (Auto) 2400 (1895-7221) /uL [place] # (Auto) 600 (0-900) /uL Eos # (Auto) 500 H (0-450) /uL Baso # (Auto) 0 (0-100) /uL Sodium 137 (137-145) mmol/L Potassium 4.9 (3.4-5.1) mmol/L Chloride 102 (98-107) mmol/L Carbon Dioxide 25 (22-32) mmol/L BUN 38 H (7-17) mg/dL Creatinine 1.50 H (0.52-1.04) mg/dL Estimated GFR 36.3 L (>60) mL/min BUN/Creatinine Ratio 25.3 H (6-22) Glucose 174 H (70-100) mg/dL Calcium 10.6 H (8.4-10.2) mg/dL Total Bilirubin 0.3 (0.2-1.3) mg/dL AST 29 (14-36) IU/L ALT 32 (9-52) IU/L Alkaline Phosphatase 107 (38-126) U/L Total Creatine Kinase 52 (30-135) U/L CK-MB (CK-2) TNP CK-MB (CK-2) Rel Index TNP Troponin I < 0.012 (0.01-0.034) ng/mL Total Protein 8.5 H (6.3-8.2) g/dL Albumin 4.3 (3.5-5.0) g/dL Globulin 4.2 H (1.7-4.1) g/dL Albumin/Globulin Ratio 1.0 (1.0-2.8) Lipase 98 (23-300) U/L Imaging Data Chest x-ray: Radiologist's impression: PROCEDURE: XR CHEST 1V INDICATIONS: hx of sarcoid TECHNIQUE: One view of the chest was acquired. COMPARISON: [facility], CR, XR CHEST 1V, 03/02/2018, 17:52. [facility], CR, XR CHEST 1V, 12/31/2017, 12:59. FINDINGS: Surgical changes and devices: None. Lungs and pleura: Lungs are clear except for small linear scar left lung base. No pleural effusions or pneumothorax. Mediastinum: Mediastinal contours appear normal. Heart size is normal. Bones and chest wall: No suspicious bony lesions. Overlying soft tissues appear unremarkable. IMPRESSION: Mildly reduced inspiratory volume, linear scarring left lung base. No adenopathy seen, no pulmonary fibrosis suspected. Dictated by: Gianni Segura M.D. on 09/25/2018 at 13:26 Approved by: Gianni Segura M.D. on 09/25/2018 at 13:26 ECG Data Attestation: I personally reviewed and interpreted this ECG as follows: Prior ECG tracings: available for review Interpretation: Normal sinus rhythm rate [address] changes no T-wave inversions similar to previous EKG MDM Narrative Medical decision making narrative: Patient's blood pressure decreased without any intervention. She has no sign of hypertensive emergency. She overall is feeling better. Her calcium has decreased. Discharge Plan Departure Patient Disposition: Home Clinical Impression: Hypertension Qualifiers: Hypertension type: essential hypertension Qualified Code(s): I10 - Essential (primary) hypertension Discharge Date/Time: 09/25/18 15:08 Interventions: ED Discharge Assessment Last Done: 09/25/18 15:07 Instructions: DI for High Blood Pressure Activity Restrictions/Additional Instructions: *You have been diagnosed with elevated blood pressure *What to do: At this time he needs discuss with your PCP is regards to management of her blood pressure. at this time no adjustments will be made *Continue to take medications as directed *Follow up with your primary care provider in 2-3 days *Return to ER if you should have increasing headache nausea weakness or any new, worsening or concerning symptoms Prescriptions: No Action Humalog KwikPen Insulin 100 unit/mL Insulin Pen 1 dose Sub-Q DIRECTED RF: 0 rosuvastatin 10 mg Tablet 10 mg PO DAILY RF: 0 Remicade 100 mg Recon Soln 1 dose IV Q2W RF: 0 Lantus Solostar U-100 Insulin 100 unit/mL (3 mL) Insulin Pen 55 unit SUB-Q DAILY RF: 0 omeprazole 20 mg Capsule,Delayed Release(Dr/Ec) 20 mg PO DAILY RF: 0 gabapentin 100 mg Capsule 100 mg PO BEDTIME RF: 0 duloxetine 60 mg Capsule,Delayed Release(Dr/Ec) 60 mg PO DAILY RF: 0 Pulmicort Flexhaler 180 mcg/actuation Aerosol Powdr Breath Activated 2 puff Inhalation BID RF: 0 cyanocobalamin (vitamin B-12) [Vitamin B-12] 1,000 mcg Tablet 1,000 mcg PO DAILY RF: 0 biotin 10,000 mcg Capsule 10,000 mcg PO DAILY RF: 0 pyridoxine (vitamin B6) [Vitamin B-6] 100 mg Tablet 100 mg PO DAILY RF: 0
[2018-09-25 13:55] LABS: Add Manual Diff / Slide Review NO; Basophils Absolute Auto 0 /uL (0-100); Basophils Percent Auto 0.5 % (0-2); Eosinophils Absolute Auto 500 /uL (0-450); Eosinophils Percent Auto 5.2 % (2-4); Hematocrit 35.9 % (36-46); Hemoglobin 11.8 g/dL (12.0-16.0); Lymphocytes Absolute Auto 2400 /uL (1100-4500); Lymphocytes Percent Auto 27.4 % (25-40); Mean Corpuscular HGB Conc 32.8 % (30-36); Mean Corpuscular Hemoglobin 26.4 PG (26-34); Mean Corpuscular Volume 80.7 fL (80-100); Monocytes Absolute Auto 600 /uL (0-900); Monocytes Percent Auto 7.2 % (3-14); Neutrophils Absolute Auto 5300 /uL (1500-7000); Neutrophils Percent Auto 59.7 % (50-75); Platelet Count 229 X10^3/uL (150-400); Red Blood Cell Count 4.45 X10^6/uL (4.0-5.2); Red Cell Distribution Width 14.5 % (11.6-14.8); White Blood Cell Count 8.9 X10^3/uL (4.5-11.0)
[2018-09-25 14:00] LABS: Alanine Aminotransferase 32 IU/L (9-52); Albumin 4.3 g/dL (3.5-5.0); Alkaline Phosphatase 107 U/L (38-126); Aspartate Aminotransferase 29 IU/L (14-36); BUN Creatinine Ratio 25.3 (6-22); Bilirubin Total 0.3 mg/dL (0.2-1.3); Blood Urea Nitrogen 38 mg/dL (7-17); Calcium 10.6 mg/dL (8.4-10.2); Carbon Dioxide 25 mmol/L (22-32); Chloride 102 mmol/L (98-107); Creatine Kinase 52 U/L (30-135); Estimated Glomerular Filt Rate 36.3 mL/min (>60); Globulin 4.2 g/dL (1.7-4.1); Glucose 174 mg/dL (70-100); HEMOLYSIS < 15 (0-50); Lipase 98 U/L (23-300); Potassium 4.9 mmol/L (3.4-5.1); Sodium 137 mmol/L (137-145); Total Protein 8.5 g/dL (6.3-8.2)
[2018-09-25 14:12] LABS: Troponin I < 0.012 ng/mL (0.01-0.034)
[2018-09-25 15:07] VITALS: BP 141/80; PULSE 98; RESP 15; O2SAT 98
== END 2018-09-25 15:08 | disposition home or self-care (01) ==
PROVIDERS: Emergency Provider Emergency Medicine
DX: I10 Essential (primary) hypertension (principal); Z87.09 Personal history of other diseases of the respiratory system
CPT/HCPCS: 36591; 71045; 80053; 82550; 83690; 84484; 85025; 93005; 96360; 99283; 99285

== ENCOUNTER → 2019-09-24 13:09 | Outpatient (CLI) | payer OTHER, SELFPAY | PROVIDERS: PCP Internal Medicine; Referring Provider Physician Assistant Medical; Visit Provider Family Medicine | DX: E11.621 Type 2 diabetes mellitus with foot ulcer (principal); L97.411 Non-pressure chronic ulcer of right heel and midfoot limited to breakdown of skin; L97.511 Non-pressure chronic ulcer of other part of right foot limited to breakdown of skin; D86.9 Sarcoidosis, unspecified; L03.115 Cellulitis of right lower limb; Z79.4 Long term (current) use of insulin | CPT/HCPCS: 11042; 87070; 87075; 87077; 87186; 87205; 97597; 99203; 99213 ==

== ENCOUNTER → 2019-10-01 08:33 | Outpatient (CLI) | payer OTHER, SELFPAY | PROVIDERS: PCP Internal Medicine; Referring Provider Internal Medicine; Visit Provider Family Medicine | DX: E11.621 Type 2 diabetes mellitus with foot ulcer (principal); L97.411 Non-pressure chronic ulcer of right heel and midfoot limited to breakdown of skin; L97.511 Non-pressure chronic ulcer of other part of right foot limited to breakdown of skin; D86.9 Sarcoidosis, unspecified; Z79.4 Long term (current) use of insulin | CPT/HCPCS: 97597 ==

== ENCOUNTER → 2019-10-27 10:50 | Outpatient (CLI) | payer OTHER, SELFPAY | PROVIDERS: PCP Internal Medicine; Referring Provider Internal Medicine; Visit Provider Family Medicine | DX: E11.621 Type 2 diabetes mellitus with foot ulcer (principal); L97.411 Non-pressure chronic ulcer of right heel and midfoot limited to breakdown of skin; L97.521 Non-pressure chronic ulcer of other part of left foot limited to breakdown of skin; L08.9 Local infection of the skin and subcutaneous tissue, unspecified; D86.9 Sarcoidosis, unspecified; E11.40 Type 2 diabetes mellitus with diabetic neuropathy, unspecified; Z79.4 Long term (current) use of insulin | CPT/HCPCS: 11042; 87070; 87077; 87147; 87186; 87205; 99214 ==

== ENCOUNTER → 2019-11-03 10:59 | Outpatient (CLI) | payer OTHER, SELFPAY | PROVIDERS: PCP Internal Medicine; Referring Provider Internal Medicine; Visit Provider Family Medicine | DX: E11.621 Type 2 diabetes mellitus with foot ulcer (principal); L97.411 Non-pressure chronic ulcer of right heel and midfoot limited to breakdown of skin; D86.9 Sarcoidosis, unspecified; Z79.4 Long term (current) use of insulin; Z79.899 Other long term (current) drug therapy; L08.9 Local infection of the skin and subcutaneous tissue, unspecified; B95.61 Methicillin susceptible Staphylococcus aureus infection as the cause of diseases classified elsewhere; B95.1 Streptococcus, group B, as the cause of diseases classified elsewhere | CPT/HCPCS: 11042; 99214 ==

== ENCOUNTER → 2020-01-12 10:07 | Outpatient (CLI) | payer OTHER, SELFPAY ==
[2020-01-16 00:35] LABS: COVID19 Sendout Not Detected (Not Detected)
== END ==
PROVIDERS: PCP Internal Medicine; Visit Provider Physician Assistant
DX: Z20.828 Contact with and (suspected) exposure to other viral communicable diseases (principal)
CPT/HCPCS: 87635

== ENCOUNTER 2020-02-27 10:52 | Emergency (ER) | payer OTHER, SELFPAY ==
[2020-02-27 11:00] VITALS: BP 169/87; PULSE 93; RESP 16; TEMP 37.2; O2SAT 95; BMI 30.5
--- NOTE | 2020-02-27 11:07 | ED_ITS ---
HPI - Extremity Problem General Chief complaint: Extremity Problem,Nontraumatic Stated complaint: Right leg pain Time Seen by Provider: 02/27/20 11:05 Source: patient Mode of arrival: Wheelchair Limitations: no limitations History of Present Illness HPI Narrative: Patient is a 54-year-old female with history of sarcoidosis and diabetes and neuropathy presenting with sharp shooting pain in her foot. She typically does not get sharp shooting electrical pains in her foot her leg from her neuropathy but this started last night. She takes Cymbalta for her neuropathy unable take gabapentin it causes hives. She denies any fever or chills she has no cough or increased shortness of breath. She has a wound on the bottom of her right heel which she is followed by wound care with. At this time there is no worsening erythema or discharge. She denies any injury to her MD Complaint: joint paint Related Data Home Medications Medication Instructions Recorded Confirmed insulin lispro [Humalog KwikPen 1 dose SUB-Q DIRECTED 12/31/17 09/25/18 Insulin] rosuvastatin 10 mg PO DAILY 12/31/17 09/25/18 infliximab [Remicade] 1 dose IV Q2W 03/02/18 09/25/18 insulin glargine [Lantus Solostar 55 unit SUB-Q DAILY 03/02/18 09/25/18 U-100 Insulin] biotin 10,000 mcg PO DAILY 09/25/18 09/25/18 budesonide [Pulmicort Flexhaler] 2 puff INHALATION BID 09/25/18 09/25/18 cyanocobalamin (vitamin B-12) 1,000 mcg PO DAILY 09/25/18 09/25/18 [Vitamin B-12] duloxetine 60 mg PO DAILY 09/25/18 09/25/18 gabapentin 100 mg PO BEDTIME 09/25/18 09/25/18 omeprazole 20 mg PO DAILY 09/25/18 09/25/18 pyridoxine (vitamin B6) [Vitamin 100 mg PO DAILY 09/25/18 09/25/18 B-6] Previous Rx's Medication Instructions Recorded acetaminophen-codeine 1 tab PO Q6H PRN #10 tab 02/27/20 [Tylenol-Codeine #3] Allergies Allergy/AdvReac Type Severity Reaction Status Date / Time gabapentin Allergy Verified 07/07/20 10:11 hydrochlorothiazide Allergy Verified 01/12/20 10:11 Review of Systems Review of Systems Narrative: GENERAL: Denies chills, fatigue, malaise, fever, sweats, travel HEENT: Denies sinus pain, ear pain, sore throat, difficulty swallowing, neck pain RESPIRATORY: Denies dyspnea, cough, wheezing, hemoptysis, sputum. CARDIOVASCULAR: Denies chest pain, palpitations, orthopnea, edema GASTROINTESTINAL: Denies nausea, vomiting, abdominal pain, diarrhea, constipation, melena. : Denies dysuria, frequency, incontinence, hematuria, urinary retention, flank pain. MUSCULOSKELETAL: Denies weakness, joint pain, or bony pain SKIN: No rash, no erythema, no pruritus NEUROLOGIC: See HPI PSYCHIATRIC: No concerning psychosocial issues. 12 point review of systems is negative except for those stated above and HPI Patient History Medical History GERD (gastroesophageal reflux disease) (Chronic) HTN (hypertension) (Chronic) Hyperlipidemia (Chronic) Sarcoidosis (Chronic) Type 2 diabetes mellitus (Chronic) Social History Smoking Status: Current every day smoker Smoking Status: Current every day smoker alcohol intake frequency: holidays/special occasions only Substance Use Type: does not use Exam Initial Vital Signs Initial Vital Signs: Vital Signs Temperature 98.9 F 02/27/20 11:00 Pulse Rate 93 H 02/27/20 11:00 Respiratory Rate 16 02/27/20 11:00 Blood Pressure 169/87 H 02/27/20 11:00 Pulse Oximetry 95 02/27/20 11:00 GENERAL: Well-appearing, well-nourished and in no acute distress. HEENT: Head atraumatic,EOMI, pupils reactive, face symmetric, moist mucous membranes CARDIOVASCULAR: Regular rate and rhythm without murmurs, rubs or gallops. RESPIRATORY: Breath sounds equal bilaterally, no wheezes rales or rhonchi. ABDOMEN: Soft, nontender. Normoactive bowel sounds all 4 quadrants. No guarding or rebound. EXTREMITIES: Normal range of motion, no clubbing or edema. Neurovascularly intact. Right foot no gross bony deformity NEUROLOGICAL: Alert and oriented x4. SKIN: Chronic wound bottom of right heel appears to be healing no erythema no gross discharge Course Vital Signs Vital signs: Vital Signs - 8 hr 02/27/20 12:04 Pulse Rate 95 H Blood Pressure 159/88 H Pulse Oximetry 100 MDM - Extremity (Nontraumatic) MDM Narrative Medical decision making narrative: Patient's symptoms sound as though she is having worsening neuropathy. She is unable to take gabapentin she says that causes internal and external hives which is why she takes the Cymbalta. She is requesting Tylenol #4 for pain control she says the only thing that works for h er. She has follow-up with Rheumatology and other specialists. Discharge Plan Departure Patient Disposition: Home Clinical Impression: Neuropathy Discharge Date/Time: 02/27/20 11:56 Instructions: Peripheral Neuropathy, DI for Diabetic Neuropathy Activity Restrictions/Additional Instructions: *You have been diagnosed with neuropathy *What to do: Recommend he follow-up with your specialist in regards to her worsening neuropathy *Continue to take medications as directed Tylenol with codeine 1 tablet every 6 hours if needed for severe pain *Follow up with your primary care provider in 2-3 days *Return to ER if you should have increased weakness, redness, fever or any new, worsening or concerning symptoms CONTROLLED SUBSTANCE DISCHARGE (Narcotoic/benzodiazepine/Flexeril/Phenergan) 1. You have been prescribed narcotic medications, it does have acetaminophen/Tylenol/paracetamol in it so do not take extra Tylenol or Tylenol containing products TRAMADOL DOES NOT CONTAIN TYLENOL 2. Please understand that we cannot provide further refills of narcotics, benzodiazepines or controlled substances through the ED and her pain management will need to be through your provider. 3. While on these medications you cannot drive or operate heavy machinery. 4. You cannot sign legal documents or perform any duties such as this. 5. As long as you're taking opiate pain medications he should also be taking a stool softener such as Colace, Dulcolax, MiraLAX or prune juice, to help avoid constipation. Prescriptions: New acetaminophen-codeine [Tylenol-Codeine #3] 300-30 mg tablet 1 tab PO Q6H PRN (Reason: pain) Qty: 10 RF: 0 No Action Humalog KwikPen Insulin 100 unit/mL Insulin Pen 1 dose Sub-Q DIRECTED RF: 0 rosuvastatin 10 mg Tablet 10 mg PO DAILY RF: 0 Remicade 100 mg Recon Soln 1 dose IV Q2W RF: 0 Lantus Solostar U-100 Insulin 100 unit/mL (3 mL) Insulin Pen 55 unit SUB-Q DAILY RF: 0 omeprazole 20 mg Capsule,Delayed Release(Dr/Ec) 20 mg PO DAILY RF: 0 gabapentin 100 mg Capsule 100 mg PO BEDTIME RF: 0 duloxetine 60 mg Capsule,Delayed Release(Dr/Ec) 60 mg PO DAILY RF: 0 Pulmicort Flexhaler 180 mcg/actuation Aerosol Powdr Breath Activated 2 puff Inhalation BID RF: 0 cyanocobalamin (vitamin B-12) [Vitamin B-12] 1,000 mcg Tablet 1,000 mcg PO DAILY RF: 0 biotin 10,000 mcg Capsule 10,000 mcg PO DAILY RF: 0 pyridoxine (vitamin B6) [Vitamin B-6] 100 mg Tablet 100 mg PO DAILY RF: 0 Referrals: Sukhwinder Gutiérrez MD [Primary Care Provider] -
[2020-02-27 12:04] VITALS: BP 159/88; PULSE 95; O2SAT 100
== END 2020-02-27 11:56 | disposition home or self-care (01) ==
LOC: ED 11:58
PROVIDERS: Emergency Provider Emergency Medicine; PCP Internal Medicine
DX: G62.9 Polyneuropathy, unspecified (principal)
CPT/HCPCS: 99281

== ENCOUNTER → 2020-03-10 15:17 | Outpatient (CLI) | payer OTHER, SELFPAY ==
--- NOTE | 2020-03-10 15:23 | DI.MRI.S_ITS ---
PROCEDURE: MR ANKLE RT WO CON INDICATIONS: Other instability, right ankle Pain in right foot TECHNIQUE: Noncontrast sagittal T1 spin echo and T2 fast spin echo with fat saturation, axial proton density fast spin echo and T2 fast spin echo with fat saturation, coronal T1 spin echo and T2 fast spin echo with fat saturation through the ankle/hindfoot. COMPARISON: None. FINDINGS: Image quality: Excellent. Bones and joints: Midfoot and hindfoot joint osteoarthritic changes are seen particularly involving tarsal metatarsal joints with joint space narrowing, subchondral sclerosis and mild edema and marginal osteophyte formation. Well-defined plantar and dorsal calcaneal enthesophytes are seen. No hindfoot coalitions. No osteochondral injuries of the talar dome. Small to moderate amount of fluid within tibiotalar joint and subtalar joint is noted. No gross intra-articular loose body. Medial structures: The posterior tibialis is mildly thickened with fluid surrounding tendon sheath suggestive of low-grade tenosynovitis. The flexor digitorum longus, and flexor hallucis longus tendons are intact. The posterior tibial neurovascular bundle appears normal within the tarsal tunnel, without extrinsic mass effect. Thickening and intrasubstance hyperintense signal involving deep and superficial layers of deltoid ligament is seen suggestive of ligament sprain/low-grade partial-thickness tear. The spring ligament components (superomedial calcaneonavicular, medioplantar oblique calcaneonavicular, and inferoplantar longitudinal ligaments) are intact. Lateral structures: The anterior talofibular, calcaneofibular, and posterior talofibular ligaments appear mildly thickened suggestive of low-grade ligament sprain.. More superiorly, the anterior and posterior tibiofibular ligaments appear intact, as is the intermalleolar ligament. The tibiofibular syndesmosis is normal in width at 2 mm or less. The peroneus longus and brevis tendons demonstrate normal location and morphology. Adjacent bony peroneal tubercle and retrotrochlear prominence are normal in size. The sinus tarsi demonstrates normal fatty signal, without edema, fibrosis, or cyst formation. Visualized sinus tarsi components (cervical ligament, interosseous talocalcaneal ligament, roots of the inferior extensor retinaculum) appear normal. The calcaneonavicular and calcaneocuboid components of the bifurcate ligament appear intact. The dorsal calcaneocuboid ligament appears intact. Anterior structures: The tibialis anterior, extensor hallucis longus, and extensor digitorum longus tendons appear intact. The dorsal talonavicular ligament appears intact. Posterior and plantar structures: Achilles tendon is intact. Thickened medial band of the plantar fascia is seen at its insertion on plantar calcaneus. No abductor digiti quinti muscle atrophy to suggest Morillo neuropathy. IMPRESSION: 1. [id number] midfoot and hindfoot joint osteoarthritis. No fracture or dislocation. Well-defined plantar and dorsal calcaneal enthesophytes. Small to moderate amount of joint effusion, no gross intra-articular loose body. 2. Low-grade tenosynovitis involving posterior tibialis tendon at the level of medial malleolus/anterior talus. 3. Low-grade sprain/intrasubstance partial-thickness tear involving deltoid ligament. Low-grade lateral ankle ligament sprain. No full-thickness ankle ligament rupture. 4. Suggestion of low-grade plantar fasciitis involving medial band of plantar fascia. Dictated by: Truong Napoles M.D. on 03/11/2020 at 9:55 Approved by: Truong Napoles M.D. on 03/11/2020 at 10:09
--- NOTE | 2020-03-10 15:23 | DI.MRI.S_ITS ---
PROCEDURE: MR FOOT RT WO CON INDICATIONS: Other instability, right ankle Pain in right foot TECHNIQUE: Noncontrast sagittal T1 spin echo and T2 fast spin echo with fat saturation, long-axis T1 spin echo and T2 fast spin echo with fat saturation, short-axis T1 spin echo and T2 fast spin echo with fat saturation through the forefoot. COMPARISON: None. FINDINGS: Image quality: Excellent. Bones and joints: Osteoarthritic changes are noted midfoot joints particularly involving 1st through 3rd TMT joints with joint space narrowing, subchondral sclerosis and edema and dorsal marginal osteophyte formation. There is no fracture or dislocation. No suspicious intraosseous lesion. No evidence of stress fracture of the metatarsal bones. Soft tissues: The visualized plantar foot muscles demonstrate normal signal and bulk. Visualized flexor and extensor tendons appear intact, without tenosynovitis. The distal insertions of the peroneus brevis and longus tendons appear intact. The principal Lisfranc ligament appears intact. No soft tissue ganglion cysts or bursal fluid collections. Sagittal images demonstrate no evidence for plantar plate tears. IMPRESSION: 1. Osteoarthritic changes at TMT joints as above. No fracture or dislocation. No evidence of stress fracture. 2. Visualized midfoot and forefoot tendons and ligaments are grossly intact. Visualized plantar fascia is intact. Dictated by: Truong Napoles M.D. on 03/11/2020 at 10:09 Approved by: Truong Napoles M.D. on 03/11/2020 at 10:23
== END ==
PROVIDERS: PCP Internal Medicine; Referring Provider Podiatrist; Visit Provider Podiatrist
DX: E11.42 Type 2 diabetes mellitus with diabetic polyneuropathy (principal); S93.421A Sprain of deltoid ligament of right ankle, initial encounter; M19.071 Primary osteoarthritis, right ankle and foot; M65.871 Other synovitis and tenosynovitis, right ankle and foot; M77.31 Calcaneal spur, right foot; M25.571 Pain in right ankle and joints of right foot; M79.671 Pain in right foot; M25.371 Other instability, right ankle; R26.2 Difficulty in walking, not elsewhere classified
CPT/HCPCS: 73718; 73721

== ENCOUNTER → 2020-03-10 15:29 | Outpatient (CLI) | payer OTHER, SELFPAY | PROVIDERS: PCP Internal Medicine; Referring Provider Podiatrist; Visit Provider Family Medicine | DX: E11.621 Type 2 diabetes mellitus with foot ulcer (principal); L97.411 Non-pressure chronic ulcer of right heel and midfoot limited to breakdown of skin; D86.9 Sarcoidosis, unspecified; Z79.4 Long term (current) use of insulin; Z79.899 Other long term (current) drug therapy; L84 Corns and callosities; M79.671 Pain in right foot; M25.371 Other instability, right ankle; R26.2 Difficulty in walking, not elsewhere classified; E11.42 Type 2 diabetes mellitus with diabetic polyneuropathy; S93.421A Sprain of deltoid ligament of right ankle, initial encounter; M19.071 Primary osteoarthritis, right ankle and foot; M65.871 Other synovitis and tenosynovitis, right ankle and foot; M77.31 Calcaneal spur, right foot; M25.571 Pain in right ankle and joints of right foot | CPT/HCPCS: 11042; 73718; 73721; 99213; 99214 ==

== ENCOUNTER → 2020-04-04 10:50 | Outpatient (CLI) | payer OTHER, SELFPAY | PROVIDERS: PCP Internal Medicine; Referring Provider Internal Medicine; Visit Provider Family Medicine | DX: E11.621 Type 2 diabetes mellitus with foot ulcer (principal); L97.411 Non-pressure chronic ulcer of right heel and midfoot limited to breakdown of skin; L08.9 Local infection of the skin and subcutaneous tissue, unspecified; D86.9 Sarcoidosis, unspecified; Z79.4 Long term (current) use of insulin; Z79.899 Other long term (current) drug therapy; L97.521 Non-pressure chronic ulcer of other part of left foot limited to breakdown of skin | CPT/HCPCS: 11042; 87070; 87077; 87147; 87186; 87205; 97597; 99214 ==

== ENCOUNTER → 2020-04-11 10:54 | Outpatient (CLI) | payer OTHER, SELFPAY | PROVIDERS: PCP Internal Medicine; Referring Provider Internal Medicine; Visit Provider Family Medicine | DX: E11.621 Type 2 diabetes mellitus with foot ulcer (principal); L97.411 Non-pressure chronic ulcer of right heel and midfoot limited to breakdown of skin; L97.511 Non-pressure chronic ulcer of other part of right foot limited to breakdown of skin; L08.9 Local infection of the skin and subcutaneous tissue, unspecified; D86.9 Sarcoidosis, unspecified; Z79.4 Long term (current) use of insulin; Z79.899 Other long term (current) drug therapy; B95.61 Methicillin susceptible Staphylococcus aureus infection as the cause of diseases classified elsewhere | CPT/HCPCS: 11042; 99214 ==

== ENCOUNTER → 2020-04-13 15:10 | Outpatient (CLI) | payer OTHER, SELFPAY ==
[2020-04-14 14:28] LABS: COVID19 Sendout Not Detected (Not Detect)
== END ==
PROVIDERS: PCP Internal Medicine; Visit Provider Physician Assistant
DX: Z01.812 Encounter for preprocedural laboratory examination (principal); Z03.818 Encounter for observation for suspected exposure to other biological agents ruled out
CPT/HCPCS: 87635

== ENCOUNTER 2021-02-14 14:36 | Emergency (ER) | payer OTHER, SELFPAY ==
[2021-02-14] VITALS (11 sets, daily range): BP systolic 164–185; BP diastolic 83–96; PULSE 74–84; RESP 12–20; TEMP 36.9; O2SAT 88–100; BMI 29.2
--- NOTE | 2021-02-14 15:04 | DI.RAD.S_ITS ---
PROCEDURE: XR CHEST 1V INDICATIONS: altered mental status TECHNIQUE: One view of the chest was acquired. COMPARISON: [facility], CR, XR CHEST 1V, 09/25/2018, 13:48. [facility], CR, XR CHEST 1V, 03/02/2018, 17:52. FINDINGS: Surgical changes and devices: None. Lungs and pleura: Minimal streaky opacity at the lung bases. No consolidation. No pleural effusions or pneumothorax. Mediastinum: Mediastinal contours appear unchanged. Heart size is within normal limits. Bones and chest wall: No suspicious bony lesions. Overlying soft tissues appear unremarkable. IMPRESSION: Minimal streaky opacity at the lung bases. Suspect atelectasis. Dictated by: Noé Luna M.D. on 02/14/2021 at 15:45 Approved by: Noé Luna M.D. on 02/14/2021 at 15:46
[2021-02-14 15:47] LABS: Alanine Aminotransferase 17 IU/L (<35); Albumin Globulin Ratio 1.1 (1.0-2.8); Alkaline Phosphatase 119 U/L (38-126); Aspartate Aminotransferase 19 IU/L (14-36); BUN Creatinine Ratio 18.8 (6-22); Bilirubin Total 0.3 mg/dL (0.2-1.3); Blood Urea Nitrogen 36 mg/dL (7-17); Calcium 9.7 mg/dL (8.4-10.2); Carbon Dioxide 20 mmol/L (22-32); Chloride 102 mmol/L (98-107); Estimated Glomerular Filt Rate 27.1 mL/min (>60); Globulin 3.7 g/dL (1.7-4.1); HEMOLYSIS < 15 (0-50); Sodium 130 mmol/L (137-145); Total Protein 7.7 g/dL (6.3-8.2)
[2021-02-14 15:48] LABS: Potassium 5.5 mmol/L (3.4-5.1)
[2021-02-14 15:50] LABS: Glucose 561 mg/dL (70-100)
[2021-02-14 15:54] LABS: Add Manual Diff / Slide Review NO; Basophils Absolute Auto 100 /uL (0-100); Eosinophils Absolute Auto 300 /uL (0-450); Eosinophils Percent Auto 4.7 % (2-4); Hematocrit 30.5 % (36-46); Hemoglobin 9.9 g/dL (12.0-16.0); Lymphocytes Absolute Auto 1600 /uL (1100-4500); Lymphocytes Percent Auto 25.9 % (25-40); Mean Corpuscular HGB Conc 32.4 % (30-36); Mean Corpuscular Hemoglobin 26.5 PG (26-34); Mean Corpuscular Volume 81.7 fL (80-100); Monocytes Absolute Auto 400 /uL (0-900); Monocytes Percent Auto 6.4 % (3-14); Neutrophils Absolute Auto 3800 /uL (1500-7000); Platelet Count 206 X10^3/uL (150-400); Red Blood Cell Count 3.73 X10^6/uL (4.0-5.2); Red Cell Distribution Width 14.2 % (11.6-14.8); White Blood Cell Count 6.2 X10^3/uL (4.5-11.0)
[2021-02-14 16:04] LABS: Magnesium 1.8 mg/dL (1.6-2.3); Phosphorous 3.8 mg/dL (2.5-4.5)
[2021-02-14 16:08] LABS: Ketones (Beta-Hydroxybutyrate) 0.01 mmol/L (<0.27)
--- NOTE | 2021-02-14 18:03 | ED.RECABL ---
HPI - Recheck/Abnormal Lab/Rx General Chief Complaint: Recheck/Abnormal Lab/Rx Stated Complaint: sugars almost 700 Time Seen by Provider: 02/14/21 18:03 Source: patient Mode of arrival: Ambulatory Limitations: no limitations History of Present Illness HPI narrative: 55-year-old former smoker with history of diabetes and sarcoid presents at the request of her interactive digital media specialist for evaluation of elevated blood sugars. She had a Remicade injection a few days ago and states that her sugars have been slowly trending upwards. Prior to her coming in she states her sugars were in the upper 600s and her interactive digital media specialist said her sodium was also low and we probably should check that. She has been feeling dizzy, weak and lightheaded and complains of excessive thirst and frequent urination. She denies any chest pain or shortness of breath. She denies any fever or chills. She denies any other medication changes and states that she has been taking her diabetic regimen as directed Related Data Home Medications Medication Instructions Recorded Confirmed insulin lispro 100 unit/mL 1 dose SUB-Q DIRECTED 12/31/17 09/25/18 subcutaneous pen (Humalog KwikPen (U-100) Insulin) rosuvastatin 10 mg tablet 10 mg PO DAILY 12/31/17 09/25/18 infliximab 100 mg intravenous 1 dose IV Q2W 03/02/18 09/25/18 solution (Remicade) insulin glargine 100 unit/mL (3 55 unit SUB-Q DAILY 03/02/18 09/25/18 mL) subcutaneous pen (Lantus Solostar U-100 Insulin) biotin 10,000 mcg capsule 10,000 mcg PO DAILY 09/25/18 09/25/18 budesonide 180 mcg/actuation 2 puff INHALATION BID 09/25/18 09/25/18 breath activated powder inhaler (Pulmicort Flexhaler) cyanocobalamin (vitamin B-12) 1,000 mcg PO DAILY 09/25/18 09/25/18 1,000 mcg tablet (Vitamin B-12) duloxetine 60 mg capsule,delayed 60 mg PO DAILY 09/25/18 09/25/18 release gabapentin 100 mg capsule 100 mg PO BEDTIME 09/25/18 09/25/18 omeprazole 20 mg capsule,delayed 20 mg PO DAILY 09/25/18 09/25/18 release pyridoxine (vitamin B6) 100 mg 100 mg PO DAILY 09/25/18 09/25/18 tablet (Vitamin B-6) Previous Rx's Medication Instructions Recorded acetaminophen 300 mg-codeine 30 mg 1 tab PO Q6H PRN #10 tab 02/27/20 tablet (Tylenol-Codeine #3) Allergies Allergy/AdvReac Type Severity Reaction Status Date / Time hydroxychloroquine Allergy Severe Unresponsiv Verified 02/14/21 15:03 e gabapentin Allergy Verified 02/14/21 15:03 Review of Systems Review of Systems Narrative: GENERAL: See HP HEENT: Denies sinus pain, ear pain, sore throat, difficulty swallowing, dizziness. RESPIRATORY: Denies dyspnea, cough, wheezing, hemoptysis, sputum. CARDIOVASCULAR: Denies chest pain, palpitations, orthopnea, edema, GASTROINTESTINAL: Denies nausea, vomiting, abdominal pain, diarrhea, constipation, melena. : Denies dysuria, frequency, incontinence, hematuria, urinary retention. MUSCULOSKELETAL: denies weakness, joint pain, or bony pain SKIN: Denies rash, skin lesions, or other NEUROLOGIC: Denies weakness, headache, numbness, change in speech, confusion, seizures, incoordination. PSYCHIATRIC: No concerning psychosocial issues. 12 point review of systems is negative except for those stated above Patient History Medical History (Updated 02/14/21 @ 20:46 by Huan Pena DO) GERD (gastroesophageal reflux disease) HTN (hypertension) Hyperlipidemia Sarcoidosis Type 2 diabetes mellitus Social History Smoking Status: Former smoker Smoking Status: Former smoker alcohol intake frequency: holidays/special occasions only Substance Use Type: does not use Exam Narrative Exam Narrative: GENERAL: [55] year old patient appears stated age. Well-developed patient, in mild distress. HEAD: Atraumatic. Normocephalic. EYES: Pupils equal round and reactive. Extraocular motions intact. No scleral icterus. No injection or drainage. ENT: Nose without bleeding, purulent drainage. Throat without erythema, tonsillar hypertrophy or exudate. Airway patent. NECK: Trachea midline. Non tender CARDIOVASCULAR: Regular rate and rhythm without murmurs, gallops, or rubs. RESPIRATORY: Clear to auscultation. Breath sounds equal bilaterally. No wheezes, rales, or rhonchi. GASTROINTESTINAL: Abdomen soft, non-tender, nondistended. EXTREMITIES: No edema or joint tenderness. BACK: Nontender without deformity or crepitance. No flank tenderness. NEURO: AOx3. SKIN: No rash or erythema of visible areas Initial Vital Signs Initial Vital Signs: Vital Signs Temperature 98.4 F 02/14/21 14:56 Pulse Rate 74 02/14/21 14:56 Respiratory Rate 20 02/14/21 14:56 Blood Pressure 170/94 H 02/14/21 14:56 Pulse Oximetry 99 02/14/21 14:56 Course Orders Ordered: ED Orders 02/14/21 18:15 Wound Culture and Gram Stain Stat 02/14/21 19:54 Basic Metabolic Panel Stat Discontinued Medications Sodium Chloride (Normal Saline 0.9%) 1,000 mls @ 1,000 mls/hr IV BOLUS ONE Stop: 02/14/21 16:38 Last Infusion: 02/14/21 20:15 Dose: 0 mls/hr Documented by: Admin: 02/14/21 18:19 Dose: 1,000 mls/hr Documented by: STACY Sodium Chloride (Normal Saline 0.9%) 1,000 mls @ 1,000 mls/hr IV BOLUS ONE Stop: 02/14/21 19:07 Last Infusion: 02/14/21 20:40 Dose: 0 mls/hr Documented by: Admin: 02/14/21 18:20 Dose: 1,000 mls/hr Documented by: STACY Insulin Human Regular (Insulin Regular 100 Unit/Ml 3 Ml Vial) 10 unit SUBCUT NOW ONE Stop: 02/14/21 18:10 Last Admin: 02/14/21 18:20 Dose: 10 unit Documented by: STACY Cosigned by: CHRIS Reevaluation(s) Reevaluation #1: patient feels quite well even on arrival. She feels tremendous relief after fluids and insulin. Vital Signs Vital signs: Vital Signs - 8 hr 02/14/21 18:30 02/14/21 19:00 02/14/21 19:30 Pulse Rate 75 78 84 Respiratory Rate 20 20 19 Blood Pressure 185/86 H Pulse Oximetry 98 98 88 L 02/14/21 20:00 02/14/21 20:30 02/14/21 20:57 Pulse Rate 79 79 78 Respiratory Rate 14 12 20 Blood Pressure Pulse Oximetry 99 100 97 02/14/21 20:58 Pulse Rate 77 Respiratory Rate 20 Blood Pressure 164/83 H Pulse Oximetry 98 MDM - Recheck/Abnormal Lab/Rx Lab Data Result diagrams: 02/14/21 15:11 02/14/21 19:54 Labs: Lab Results 02/14/21 02/14/21 02/14/21 Range/Units 15:11 15:11 15:11 WBC 6.2 (4.5-11.0) X10^3/uL RBC 3.73 L (4.0-5.2) X10^6/uL Hgb 9.9 L (12.0-16.0) g/dL Hct 30.5 L (36-46) % MCV 81.7 (80-100) fL MCH 26.5 (26-34) PG MCHC 32.4 (30-36) % RDW 14.2 (11.6-14.8) % Plt Count 206 (150-400) X10^3/uL Neut % (Auto) 62.0 (50-75) % Lymph % (Auto) 25.9 (25-40) % [place] % (Auto) 6.4 (3-14) % Eos % (Auto) 4.7 H (2-4) % Baso % (Auto) 1.0 (0-2) % Neut # (Auto) 3800 (4261-8455) /uL Lymph # (Auto) 1600 (0465-1466) /uL [place] # (Auto) 400 (0-900) /uL Eos # (Auto) 300 (0-450) /uL Baso # (Auto) 100 (0-100) /uL Sodium 130 L (137-145) mmol/L Potassium 5.5 H (3.4-5.1) mmol/L Chloride 102 (98-107) mmol/L Carbon Dioxide 20 L (22-32) mmol/L BUN 36 H (7-17) mg/dL Creatinine 1.92 H (0.52-1.04) mg/dL Estimated GFR 27.1 L (>60) mL/min BUN/Creatinine Ratio 18.8 (6-22) Glucose 561 H* (70-100) mg/dL Calcium 9.7 (8.4-10.2) mg/dL Phosphorus 3.8 (2.5-4.5) mg/dL Magnesium 1.8 (1.6-2.3) mg/dL Total Bilirubin 0.3 (0.2-1.3) mg/dL AST 19 (14-36) IU/L ALT 17 (<35) IU/L Alkaline Phosphatase 119 (38-126) U/L Total Protein 7.7 (6.3-8.2) g/dL Albumin 4.0 (3.5-5.0) g/dL Globulin 3.7 (1.7-4.1) g/dL Albumin/Globulin Ratio 1.1 (1.0-2.8) Urine RBC (0-5/HPF) Urine WBC (0-5/HPF) Ur Squamous Epith Cells (0-5/HPF) Amorphous Sediment Urine Bacteria (None) Ur Culture Indicated? Ketones 0.01 (<0.27) mmol/L 02/14/21 02/14/21 Range/Units 15:25 19:54 WBC (4.5-11.0) X10^3/uL RBC (4.0-5.2) X10^6/uL Hgb (12.0-16.0) g/dL Hct (36-46) % MCV (80-100) fL MCH (26-34) PG MCHC (30-36) % RDW (11.6-14.8) % Plt Count (150-400) X10^3/uL Neut % (Auto) (50-75) % Lymph % (Auto) (25-40) % [place] % (Auto) (3-14) % Eos % (Auto) (2-4) % Baso % (Auto) (0-2) % Neut # (Auto) (6205-2892) /uL Lymph # (Auto) (8095-7111) /uL [place] # (Auto) (0-900) /uL Eos # (Auto) (0-450) /uL Baso # (Auto) (0-100) /uL Sodium 136 L (137-145) mmol/L Potassium 4.2 D (3.4-5.1) mmol/L Chloride 107 (98-107) mmol/L Carbon Dioxide 22 (22-32) mmol/L BUN 32 H (7-17) mg/dL Creatinine 1.70 H (0.52-1.04) mg/dL Estimated GFR 31.2 L (>60) mL/min BUN/Creatinine Ratio 18.8 (6-22) Glucose 313 H D (70-100) mg/dL Calcium 8.7 (8.4-10.2) mg/dL Phosphorus (2.5-4.5) mg/dL Magnesium (1.6-2.3) mg/dL Total Bilirubin (0.2-1.3) mg/dL AST (14-36) IU/L ALT (<35) IU/L Alkaline Phosphatase (38-126) U/L Total Protein (6.3-8.2) g/dL Albumin (3.5-5.0) g/dL Globulin (1.7-4.1) g/dL Albumin/Globulin Ratio (1.0-2.8) Urine RBC 0-1/hpf (0-5/HPF) Urine WBC 0-1/hpf (0-5/HPF) Ur Squamous Epith Cells 0-1 /hpf (0-5/HPF) Amorphous Sediment 1+ Urine Bacteria None seen (None) Ur Culture Indicated? Culture not indicate Ketones (<0.27) mmol/L Point of Care Testing Glucose POC 375 Urine Dip Bedside Urine Glucose 1000 mg/dl Bedside Urine Bilirubin - Negative Bedside Urine Ketone - Negative Urine Specific [place] 1.015 Bedside Urine Occult Blood +/- Bedside Urine pH 6.0 Bedside Urine Protein +/- 15 Bedside Urine Urobilinogen - Negative Bedside Urine Nitrite - Negative Bedside Urine Leukocytes - Negative Esterase ECG Data Interpretation: EKG is normal sinus rhythm rate [ 76] and free of any signs of ischemia or ectopy. No ST segmental elevation or depression. No T wave inversions MDM Narrative Medical decision making narrative: Patient presents for evaluation of high blood sugar and low sodium. She frequently has elevated sugars and states she routinely runs in the 300s. She denies any fever or chills and has no pain. She's had no dietary or medication change. She feels tremendous improvement after fluids and insulin. She has a very reassuring physical exam. Labs have improved and at time of discharge her BG was down in the low 300s. Her Sodium on arrival was low, but corrected (calculated) to 137, this had normalized to a regular measured level on repeat labs. Her creatinine had improved to near normal for her. We discussed the possibility of observation versus discharge and sure the opinion that given her tremendous improvement and relief with common therapies. She would prefer to go home and will follow up. She has an insulin sliding scale that she is comfortable with. She has been given return precautions and questions have been answered to her apparent satisfaction. 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 Your physical exam is very reassuring, your numbers have strong removed in the right direction.] *What to do: *Please continue to take your regular medications as directed. [ ] New medication prescriptions sent to your pharmacy: [ ] [ ] New medication written as a paper prescription [x ] No new medications given *Please follow up with your primary care provider in 2-3 days, call for an appointment. Let them know you were seen in the Emergency Department and that we ask that you be seen in follow up. We will electronically transmit a record of today's note if your PCP is in our system *If you do not have a primary care provider please contact the [facility] Resource line at [phone]. They will ask some questions about your medical history and help get you set up with a doctor in the community. *Return to Emergency Department if you should have any new, worsening or concerning symptoms, such as [fever greater than 101 F, shaking chills, worsening pain, persistent vomiting or other bothersome symptoms] Prescriptions: No Action Humalog KwikPen Insulin 100 unit/mL Insulin Pen 1 dose Sub-Q DIRECTED RF: 0 rosuvastatin 10 mg Tablet 10 mg PO DAILY RF: 0 Remicade 100 mg Recon Soln 1 dose IV Q2W RF: 0 Lantus Solostar U-100 Insulin 100 unit/mL (3 mL) Insulin Pen 55 unit SUB-Q DAILY RF: 0 omeprazole 20 mg Capsule,Delayed Release(Dr/Ec) 20 mg PO DAILY RF: 0 gabapentin 100 mg Capsule 100 mg PO BEDTIME RF: 0 duloxetine 60 mg Capsule,Delayed Release(Dr/Ec) 60 mg PO DAILY RF: 0 Pulmicort Flexhaler 180 mcg/actuation Aerosol Powdr Breath Activated 2 puff Inhalation BID RF: 0 cyanocobalamin (vitamin B-12) [Vitamin B-12] 1,000 mcg Tablet 1,000 mcg PO DAILY RF: 0 biotin 10,000 mcg Capsule 10,000 mcg PO DAILY RF: 0 pyridoxine (vitamin B6) [Vitamin B-6] 100 mg Tablet 100 mg PO DAILY RF: 0 acetaminophen-codeine [Tylenol-Codeine #3] 300-30 mg tablet 1 tab PO Q6H PRN (Reason: pain) Qty: 10 RF: 0
[2021-02-14] MEDS: SODIUM CHLORIDE 0.9% 1,000 ML 1000 ML IV ×2 (18:19→18:20)
[2021-02-14] MEDS: INSULIN REGULAR 100 UNIT/ML 3 ML VIAL 10 UNIT SUBCUT (18:20)
[2021-02-14 19:07] LABS: Bacteria Urine None Seen
[2021-02-14 19:21] LABS: Amorphous Sediment Urine 1+; RBC Urine 0-1/HPF (0-5/HPF); Squamous Epithelial Cell Urine 0-1 /HPF (0-5/HPF); WBC Urine 0-1/HPF (0-5/HPF)
[2021-02-14 20:11] LABS: BUN Creatinine Ratio 18.8 (6-22); Blood Urea Nitrogen 32 mg/dL (7-17); Calcium 8.7 mg/dL (8.4-10.2); Carbon Dioxide 22 mmol/L (22-32); Chloride 107 mmol/L (98-107); Estimated Glomerular Filt Rate 31.2 mL/min (>60); Glucose 313 mg/dL (70-100); HEMOLYSIS < 15 (0-50); Potassium 4.2 mmol/L (3.4-5.1); Sodium 136 mmol/L (137-145)
== END 2021-02-14 21:00 | disposition home or self-care (01) ==
PROVIDERS: Emergency Medicine; Emergency Provider Emergency Medicine
DX: E11.65 Type 2 diabetes mellitus with hyperglycemia (principal); E87.1 Hypo-osmolality and hyponatremia
CPT/HCPCS: 36415; 71045; 80048; 80053; 81003; 81015; 82009; 82962; 83735; 84100; 85025; 87070; 87075; 87077; 87086; 87147; 87186; 87205; 93005; 96360; 96361; 96372; 99284

== ENCOUNTER 2021-03-25 14:49 | Emergency (ER) | payer OTHER, SELFPAY ==
[2021-03-25 14:55] VITALS: O2SAT 99
[2021-03-25 14:56] VITALS: BP 118/71; PULSE 92; RESP 18; O2SAT 99
[2021-03-25 15:01] VITALS: BP 118/71; PULSE 91; RESP 15; TEMP 36.9; O2SAT 99; BMI 28.3
--- NOTE | 2021-03-25 15:05 | ED_ITS ---
HPI - Neck Pain/Injury General Chief Complaint: Neck Pain/Injury Stated Complaint: can't move neck, back or left arm, pain Time Seen by Provider: 03/25/21 14:58 Source: patient Mode of arrival: Wheelchair History of Present Illness HPI Narrative: Patient is a 55-year-old female who is here for evaluation of left-sided upper back pain, neck pain, inability to move her left shoulder secondary to the discomfort. She states that the symptoms been going on for approximately 24 hours. There has been no specific trauma. Had a prior prescription for methocarbamol which she has taken without any improvement. She denies chest pain. Her discomfort is made worse with movement of her shoulder and also touching her upper back. Also hurts when she moves her head to the left. Related Data Home Medications Medication Instructions Recorded Confirmed insulin lispro 100 unit/mL 1 dose SUB-Q DIRECTED 12/31/17 09/25/18 subcutaneous pen (Humalog KwikPen (U-100) Insulin) rosuvastatin 10 mg tablet 10 mg PO DAILY 12/31/17 09/25/18 infliximab 100 mg intravenous 1 dose IV Q2W 03/02/18 09/25/18 solution (Remicade) insulin glargine 100 unit/mL (3 55 unit SUB-Q DAILY 03/02/18 09/25/18 mL) subcutaneous pen (Lantus Solostar U-100 Insulin) biotin 10,000 mcg capsule 10,000 mcg PO DAILY 09/25/18 09/25/18 budesonide 180 mcg/actuation 2 puff INHALATION BID 09/25/18 09/25/18 breath activated powder inhaler (Pulmicort Flexhaler) cyanocobalamin (vitamin B-12) 1,000 mcg PO DAILY 09/25/18 09/25/18 1,000 mcg tablet (Vitamin B-12) duloxetine 60 mg capsule,delayed 60 mg PO DAILY 09/25/18 09/25/18 release gabapentin 100 mg capsule 100 mg PO BEDTIME 09/25/18 09/25/18 omeprazole 20 mg capsule,delayed 20 mg PO DAILY 09/25/18 09/25/18 release pyridoxine (vitamin B6) 100 mg 100 mg PO DAILY 09/25/18 09/25/18 tablet (Vitamin B-6) Previous Rx's Medication Instructions Recorded acetaminophen 300 mg-codeine 30 mg 1 tab PO Q6H PRN #10 tab 02/27/20 tablet (Tylenol-Codeine #3) cyclobenzaprine 10 mg tablet 10 mg PO TID PRN #10 tab 03/25/21 Allergies Allergy/AdvReac Type Severity Reaction Status Date / Time hydroxychloroquine Allergy Severe Unresponsiv Verified 03/25/21 15:01 e gabapentin Allergy Verified 03/25/21 15:01 Review of Systems Constitutional Constitutional: Reports system reviewed and no additional complaints, except as documented ENT Ears, Nose, Mouth, and Throat: Reports system reviewed and no additional complaints, except as documented Cardiovascular Cardiovascular: Reports as per HPI and Reports system reviewed and no additional complaints, except as documented Respiratory Respiratory: Reports as per HPI and Reports system reviewed and no additional complaints, except as documented Gastrointestinal Gastrointestinal: Reports as per HPI and Reports system reviewed and no additional complaints, except as documented Musculoskeletal Musculoskeletal: Reports system reviewed and no additional complaints, except as documented Integumentary/Breasts Skin/Breast: Reports system reviewed and no additional complaints, except as documented Neurologic Neurologic: Reports system reviewed and no additional complaints, except as documented Hematologic/Lymphatic On Anticoagulants: No Patient History Medical History (Updated 03/25/21 @ 15:44 by Escobar De Leon DO) GERD (gastroesophageal reflux disease) HTN (hypertension) Hyperlipidemia Sarcoidosis Type 2 diabetes mellitus Social History Smoking Status: Former smoker Smoking Status: Former smoker alcohol intake frequency: holidays/special occasions only Substance Use Type: does not use Exam Initial Vital Signs Initial Vital Signs: Vital Signs Temperature 98.5 F 03/25/21 15:01 Pulse Rate 91 H 03/25/21 15:01 Respiratory Rate 15 03/25/21 15:01 Blood Pressure 118/71 03/25/21 15:01 Pulse Oximetry 99 03/25/21 15:01 Const General: cooperative and healthy appearing [facility] Head: normal to inspection and normocephalic Resp Effort & Inspection: normal respiratory effort Auscultation: clear to auscultation bilaterally Cardio Rate: regular rate Rhythm: regular rhythm Pulses: radial pulses present on the left Back/Spine/Pelvis Cervical Spine: No cervical muscular tenderness and No cervical spinal tenderness Other: Tenderness to palpation paraspinal region over the rhomboids to the left shoulder. Skin General: no rashes or lesions noted Neuro General: patient alert, patient awake, patient oriented x3 and moves all extremities Extrem Other: Left wrist and left elbow unremarkable. She has no tenderness palpation around the left shoulder around the left collar bone however she has quite a bit of discomfort in her left upper back when she moves her left shoulder. Psych Appearance: grossly normal and well kempt Course Orders Ordered: Discontinued Medications Hydromorphone HCl (Hydromorphone 1 Mg Inj) 1 mg IM NOW ONE Stop: 03/25/21 15:06 Last Admin: 03/25/21 15:10 Dose: 1 mg Documented by: SARAH Vital Signs Vital signs: Vital Signs - 8 hr 03/25/21 15:01 Temperature 98.5 F Pulse Rate 91 H Respiratory Rate 15 Blood Pressure 118/71 Pulse Oximetry 99 MDM - Neck Pain/Injury MDM Narrative Medical decision making narrative: Patient's symptoms today are clearly muscular. She has tenderness over the rhomboids on the left. I have low suspicion for ACS. Low suspicion for pulmonary embolism. Low suspicion for pneumonia. I feel that we can hold on any x-ray. She is neurovascularly intact. Was sent home with a prescription for some Flexeril as the methocarbamol does not seem to be improving any for symptoms. She was given return precautions. She expressed understanding and agreement. Discharge Plan Departure Patient Disposition: Home Clinical Impression: Muscle spasm Instructions: DI for Muscle Spasm Activity Restrictions/Additional Instructions: Your exam today is consistent with a muscle spasm. Most likely the rhomboid muscles on the left. Your symptoms should improve over the next couple days. You can continue to take your Tylenol 3 that you have at home. A prescription for a 2nd muscle relaxer was transmitted a Wilfrid Parra. Also recommend light stretching and heat and ice and massage. Contact your primary doctor for a follow-up. Prescriptions: New cyclobenzaprine 10 mg tablet 10 mg PO TID PRN (Reason: muscle spasm) Qty: 10 RF: 0 No Action Humalog KwikPen Insulin 100 unit/mL Insulin Pen 1 dose Sub-Q DIRECTED RF: 0 rosuvastatin 10 mg Tablet 10 mg PO DAILY RF: 0 Remicade 100 mg Recon Soln 1 dose IV Q2W RF: 0 Lantus Solostar U-100 Insulin 100 unit/mL (3 mL) Insulin Pen 55 unit SUB-Q DAILY RF: 0 omeprazole 20 mg Capsule,Delayed Release(Dr/Ec) 20 mg PO DAILY RF: 0 gabapentin 100 mg Capsule 100 mg PO BEDTIME RF: 0 duloxetine 60 mg Capsule,Delayed Release(Dr/Ec) 60 mg PO DAILY RF: 0 Pulmicort Flexhaler 180 mcg/actuation Aerosol Powdr Breath Activated 2 puff Inhalation BID RF: 0 cyanocobalamin (vitamin B-12) [Vitamin B-12] 1,000 mcg Tablet 1,000 mcg PO DAILY RF: 0 biotin 10,000 mcg Capsule 10,000 mcg PO DAILY RF: 0 pyridoxine (vitamin B6) [Vitamin B-6] 100 mg Tablet 100 mg PO DAILY RF: 0 acetaminophen-codeine [Tylenol-Codeine #3] 300-30 mg tablet 1 tab PO Q6H PRN (Reason: pain) Qty: 10 RF: 0
[2021-03-25] MEDS: HYDROMORPHONE 1 MG INJ IM (15:10)
--- NOTE | 2021-03-25 15:43 | PC.NURSE ---
pt states pain to neck 1 month ago with no injury. Now for 24 hrs pain to L shoulder blade upper back area states it feels like a pinched nerve pt unable to have full ROM of left UE, neck and torso due to pain. pt states home muscle relaxer does not help and that this pain is not like the previous neck pain.
== END 2021-03-25 16:00 | disposition home or self-care (01) ==
PROVIDERS: Emergency Provider Emergency Medicine
DX: M62.830 Muscle spasm of back (principal); M54.2 Cervicalgia; M25.512 Pain in left shoulder
CPT/HCPCS: 96372; 99283; J1170